=== PATIENT | female | born 1970 | race Caucasian/White ===

== ENCOUNTER 2017-01-03 04:48 | Emergency (ER) | payer OTHER ==
[~2017-01-03] VITALS: Ht 175.3 cm; Wt 66.5 kg
[~2017-01-03 04:48] MED LIST: CLON1 PO; NAPR40TA PO; SYNT75TA PO; TRAM50 PO
[2017-01-03 05:03] VITALS: BP 94/55; PULSE 77; RESP 18; TEMP 98.1; O2SAT 97
[2017-01-03] MEDS ORDERED: KLON2TAB PO (05:08)
[2017-01-03 05:13] VITALS: RESP 18; O2SAT 97
[2017-01-03 05:41] LABS: AUTOMATED NEUTROPHIL # 3.2 TH/MM3 (1.8-7.7); BASOPHIL # 0.1 TH/MM3 (0-0.2); BASOPHIL % 0.8 % (0.0-2.0); EOSINOPHIL # 0.3 TH/MM3 (0-0.4); EOSINOPHIL % 4.2 % (0.0-4.0); HEMATOCRIT 37.1 % (35.0-46.0); HEMO FLAGS DIFF FINAL; LYMPH % 41.9 % (9.0-44.0); LYMPHOCYTE # 2.9 TH/MM3 (1.0-4.8); MEAN CELL VOLUME 90.3 FL (80.0-100.0); MEAN CORPUSCULAR HEMOGLOBIN 30.2 PG (27.0-34.0); MEAN CORPUSCULAR HGB CONC 33.5 % (32.0-36.0); MONO % 6.5 % (0.0-8.0); NEUT % 46.6 % (16.0-70.0); PLATELET COUNT 253 TH/MM3 (150-450); RED BLOOD COUNT 4.11 MIL/MM3 (4.00-5.30); RED CELL DISTRIBUTION WIDTH 12.9 % (11.6-17.2)
[2017-01-03 05:42] LABS: BLOOD, URINE SMALL (NEG); GLUCOSE,URINE NEG (NEG); KETONE, URINE NEG (NEG); NITRITE,URINE NEG (NEG)
[2017-01-03 05:49] LABS: CHLORIDE 108 MEQ/L (98-107); POTASSIUM 3.5 MEQ/L (3.5-5.1); SODIUM (NA) 144 MEQ/L (136-145)
[2017-01-03 05:53] LABS: ANION GAP 7 MEQ/L (5-15); BICARBONATE 28.7 MEQ/L (21.0-32.0); BLOOD UREA NITROGEN 3 MG/DL (7-18)
[2017-01-03 05:56] LABS: ALT (GPT) 19 U/L (10-53); AST (GOT) 16 U/L (15-37); GLOMERULAR FILTRATION RATE 80 ML/MIN (>89)
[2017-01-03 05:57] LABS: TOTAL BILIRUBIN ADULT 0.2 MG/DL (0.2-1.0)
[2017-01-03 05:59] LABS: ALKALINE PHOSPHATASE 49 U/L (45-117)
[2017-01-03 06:08] LABS: URINE COLOR YELLOW (YELLW/STRAW)
[2017-01-03 06:10] LABS: RBC, URINE 0-3 /hpf (0-3)
[2017-01-03 06:11] VITALS: BP 95/48; PULSE 70; RESP 18; O2SAT 98
[2017-01-03 06:11] LABS: BACTERIA, URINE MOD /hpf; COMMENT (UR) CULTURE INDICATED; CULTURE IF INDICATED CULTURE INDICATED; MUCUS URINE OCC /lpf (OCC); SQUAMOUS EPITHELIAL CELL URINE 0-5 /hpf (0-5)
--- NOTE | 2017-01-03 06:37 | PD ---
HPI Chief Complaint: Abdominal Pain Time Seen by Provider: 06:21 Travel History International Travel<30 days: No Contact w/Intl Traveler<30days: No Traveled to known affect area: No History of Present Illness HPI The patient is a 46-year-old female, G3, P0, A3 with 2 spontaneous abortions and one elective who states her last menstrual period was around 04 December and she complains of vaginal bleeding for 3 days along with pelvic pain. The patient denies any fever. She states she got a Percocet from her neighbor had 7:30 PM yesterday but it didn't help. The patient is a frequent visitor to this emergency department, often for anxiety and she has been positive on several occasions for benzodiazepines and opiates. The patient states she has prescribed Klonopin for her anxiety. PFSH Past Medical History Hx Anticoagulant Therapy: No Asthma: No Autoimmune Disease: No Bipolar Disorder: Yes Anxiety: Yes (PANIC ATTACKS) Depression: Yes (POST TRAUMATIC STRESS DISORDER) Cardiovascular Problems: No Chemotherapy: No Cerebrovascular Accident: No Diabetes: No Diminished Hearing: No Respiratory: No Immunizations Current: Yes Thyroid Disease: Yes (HYPOTHYROID) Tetanus Vaccination: < 5 Years Influenza Vaccination: No ?: Unknown LMP: Nov : 3 Miscarriage: 2 : 1 Past Surgical History Appendectomy: Yes (1998) Genitourinary Surgery: No Hysterectomy: No Other Surgery: Yes (RHINOPLASTY- 1998, BLEPHAROPLASTY 1998) Social History Alcohol Use: No Tobacco Use: Yes (2 PPD) Substance Use: No (hx of OPIATES- BENZOS use) Allergies-Medications (Allergen,Severity, Reaction): Coded Allergies: Ceftin (Verified Allergy, Severe, SHOCK, 01/03/17) Risperdal (Verified Allergy, Severe, Anaphylaxis, 01/03/17) Sulfa (Verified Allergy, Severe, SOB, HIVES, FREAK OUT, 01/03/17) Tetracycline (Verified Allergy, Severe, SOB, HIVES FREAK OUT, 01/03/17) Reported Meds & Prescriptions Reported Meds & Active Scripts Active Reported Klonopin (Clonazepam) 2 Mg Tab 2 Mg PO BID Review of Systems Except as stated in HPI: all other systems reviewed are Neg Physical Exam Narrative GENERAL: The patient is alert, oriented 3 and slight apparent distress with her midline pelvic pain. Her vital signs are normal except for blood pressure 94/55. The patient is slender. The patient appears anxious. SKIN: Warm and dry. No needle tracks nor wrist slash davis are present. HEAD: Atraumatic. Normocephalic. EYES: Pupils equal and round. No scleral icterus. No injection or drainage. ENT: No nasal bleeding or discharge. Mucous membranes pink and moist. NECK: Trachea midline. No JVD. CARDIOVASCULAR: Regular rate and rhythm. No murmur appreciated. RESPIRATORY: No accessory muscle use. Clear to auscultation. Breath sounds equal bilaterally. GASTROINTESTINAL: Abdomen soft, with tenderness to direct palpation in the midline epigastrium, nondistended. Hepatic and splenic margins not palpable. No guarding or rebound is present. MUSCULOSKELETAL: No obvious deformities. No clubbing. No cyanosis. No edema. NEUROLOGICAL: Awake and alert. No obvious cranial nerve deficits. Motor grossly within normal limits. Normal speech. PSYCHIATRIC: Appropriate mood and affect except for anxiety; insight and judgment normal. GENITOURINARY: Normal external genitalia without lesions or erythema. Vaginal vault with a small amount of blood and no other drainage. Cervical os was closed without drainage. There is cervical motion tenderness. Uterus tender and nonenlarged. Bilateral adnexa tender without masses. Data Data Last Documented VS Vital Signs Date Time Temp Pulse Resp B/P Pulse Ox O2 Delivery O2 Flow Rate FiO2 01/03/17 06:11 70 18 95/48 98 Room Air 01/03/17 05:03 98.1 Orders Complete Blood Count With Diff (01/03/17 05:11) Comprehensive Metabolic Panel (01/03/17 05:11) Urinalysis - C+S If Indicated (01/03/17 05:11) Iv Access Insert/Monitor (01/03/17 05:11) Oxygen Administration (01/03/17 05:11) Oximetry (01/03/17 05:11) Lipase (01/03/17 05:11) Ed Urine Pregnancytest Poc (01/03/17 05:21) Urine Culture (01/03/17 05:30) Beta Hcg (Quant/Titer) (01/03/17 06:48) Basic Metabolic Panel (Bmp) (01/03/17 06:48) Gc And Chlamydia Pcr (01/03/17 06:48) Wet Prep Profile (01/03/17 06:48) Labs Laboratory Tests Test 01/03/17 05:30 White Blood Count 7.0 TH/MM3 Red Blood Count 4.11 MIL/MM3 Hemoglobin 12.4 GM/DL Hematocrit 37.1 % Mean Corpuscular Volume 90.3 FL Mean Corpuscular Hemoglobin 30.2 PG Mean Corpuscular Hemoglobin 33.5 % Concent Red Cell Distribution Width 12.9 % Platelet Count 253 TH/MM3 Mean Platelet Volume 6.9 FL Neutrophils (%) (Auto) 46.6 % Lymphocytes (%) (Auto) 41.9 % Monocytes (%) (Auto) 6.5 % Eosinophils (%) (Auto) 4.2 % Basophils (%) (Auto) 0.8 % Neutrophils # (Auto) 3.2 TH/MM3 Lymphocytes # (Auto) 2.9 TH/MM3 Monocytes # (Auto) 0.5 TH/MM3 Eosinophils # (Auto) 0.3 TH/MM3 Basophils # (Auto) 0.1 TH/MM3 CBC Comment DIFF FINAL Differential Comment Urine Collection Type Urine Color YELLOW Urine Turbidity SLIGHT Urine pH 6.0 Urine Specific [place] 1.009 Urine Protein NEG mg/dL Urine Glucose (UA) NEG mg/dL Urine Ketones NEG mg/dL Urine Occult Blood SMALL Urine Nitrite NEG Urine Bilirubin NEG Urine Leukocyte Esterase NEG Urine RBC 0-3 /hpf Urine WBC 3-5 /hpf Urine Squamous Epithelial 0-5 /hpf Cells Urine Bacteria MOD /hpf Urine Mucus OCC /lpf Microscopic Urinalysis Comment CULTURE INDICATED Sodium Level 144 MEQ/L Potassium Level 3.5 MEQ/L Chloride Level 108 MEQ/L Carbon Dioxide Level 28.7 MEQ/L Anion Gap 7 MEQ/L Blood Urea Nitrogen 3 MG/DL Creatinine 0.77 MG/DL Estimat Glomerular Filtration 80 ML/MIN Rate Random Glucose 87 MG/DL Calcium Level 8.2 MG/DL Total Bilirubin 0.2 MG/DL Aspartate Amino Transf 16 U/L (AST/SGOT) Alanine Aminotransferase 19 U/L (ALT/SGPT) Alkaline Phosphatase 49 U/L Total Protein 6.0 GM/DL Albumin 3.4 GM/DL Lipase 55 U/L [facility] Medical Decision Making Medical Screen Exam Complete: Yes Emergency Medical Condition: Yes Medical Record Reviewed: Yes Interpretation(s) The urine shows slight turbidity, small occult blood, moderate bacteria and culture is indicated. The complete metabolic profile shows GFR of 80, calcium 8.2, total protein 6.0 but is otherwise normal. The lipase is normal. The CBC shows a white count of 7000 and is basically normal. Differential Diagnosis PID, menstrual period, ruptured ovarian cyst, malingering for narcotic pain medications Narrative Course The patient requested a blood test. This will be ordered. The patient is transferred to Dr. Kellogg, likely she will go home. This could be a menstrual period or PID, the patient is afraid that she might be . Romaine Ceballos MD Jan 03, 2017 06:37
[2017-01-03 07:05] VITALS: BP 97/58; RESP 16; O2SAT 97
[2017-01-03 07:45] LABS: BETA HCG QUANT LESS THAN 1 MIU/ML (0-5)
--- NOTE | 2017-01-03 07:54 | PD ---
Data Data Last Documented VS Vital Signs Date Time Temp Pulse Resp B/P Pulse Ox O2 Delivery O2 Flow Rate FiO2 01/03/17 07:05 16 97/58 97 Room Air 01/03/17 06:11 70 01/03/17 05:03 98.1 Orders Complete Blood Count With Diff (01/03/17 05:11) Comprehensive Metabolic Panel (01/03/17 05:11) Urinalysis - C+S If Indicated (01/03/17 05:11) Iv Access Insert/Monitor (01/03/17 05:11) Oxygen Administration (01/03/17 05:11) Oximetry (01/03/17 05:11) Lipase (01/03/17 05:11) Ed Urine Pregnancytest Poc (01/03/17 05:21) Urine Culture (01/03/17 05:30) Beta Hcg (Quant/Titer) (01/03/17 06:48) Gc And Chlamydia Pcr (01/03/17 06:48) Wet Prep Profile (01/03/17 06:48) Labs Laboratory Tests Test 01/03/17 01/03/17 05:30 06:30 White Blood Count 7.0 TH/MM3 Red Blood Count 4.11 MIL/MM3 Hemoglobin 12.4 GM/DL Hematocrit 37.1 % Mean Corpuscular Volume 90.3 FL Mean Corpuscular Hemoglobin 30.2 PG Mean Corpuscular Hemoglobin 33.5 % Concent Red Cell Distribution Width 12.9 % Platelet Count 253 TH/MM3 Mean Platelet Volume 6.9 FL Neutrophils (%) (Auto) 46.6 % Lymphocytes (%) (Auto) 41.9 % Monocytes (%) (Auto) 6.5 % Eosinophils (%) (Auto) 4.2 % Basophils (%) (Auto) 0.8 % Neutrophils # (Auto) 3.2 TH/MM3 Lymphocytes # (Auto) 2.9 TH/MM3 Monocytes # (Auto) 0.5 TH/MM3 Eosinophils # (Auto) 0.3 TH/MM3 Basophils # (Auto) 0.1 TH/MM3 CBC Comment DIFF FINAL Differential Comment Urine Collection Type Urine Color YELLOW Urine Turbidity SLIGHT Urine pH 6.0 Urine Specific [place] 1.009 Urine Protein NEG mg/dL Urine Glucose (UA) NEG mg/dL Urine Ketones NEG mg/dL Urine Occult Blood SMALL Urine Nitrite NEG Urine Bilirubin NEG Urine Leukocyte Esterase NEG Urine RBC 0-3 /hpf Urine WBC 3-5 /hpf Urine Squamous Epithelial 0-5 /hpf Cells Urine Bacteria MOD /hpf Urine Mucus OCC /lpf Microscopic Urinalysis Comment CULTURE INDICATED Sodium Level 144 MEQ/L Potassium Level 3.5 MEQ/L Chloride Level 108 MEQ/L Carbon Dioxide Level 28.7 MEQ/L Anion Gap 7 MEQ/L Blood Urea Nitrogen 3 MG/DL Creatinine 0.77 MG/DL Estimat Glomerular Filtration 80 ML/MIN Rate Random Glucose 87 MG/DL Calcium Level 8.2 MG/DL Total Bilirubin 0.2 MG/DL Aspartate Amino Transf 16 U/L (AST/SGOT) Alanine Aminotransferase 19 U/L (ALT/SGPT) Alkaline Phosphatase 49 U/L Total Protein 6.0 GM/DL Albumin 3.4 GM/DL Lipase 55 U/L Human Chorionic Gonadotropin, LESS THAN 1 Quant MIU/ML Clue Cells (Wet Prep) NONE SEEN Vaginal Trichomonas (Wet Prep) NONE SEEN Vaginal Yeast (Wet Prep) NONE SEEN MDM Supervised Visit with SATISH: No Narrative Course patient left ama while I was with another patient before her beta quant resulted and before I could talk with her and reassess her Diagnosis Primary Impression: Abdominal pain Qualified Code: R10.9 - Abdominal pain, unspecified location Patient Instructions: General Instructions Departure Forms: Tests/Procedures Disposition: 07 AGAINST MEDICAL ADVICE Condition: Stable Amy Hastings MD Jan 03, 2017 07:54
[2017-01-03 13:08] LABS: CHLAMYDIA PCR NOT DETECTED (NOT DETECT); NEISSERIA PCR NOT DETECTED (NOT DETECT)
== END 2017-01-03 07:58 | disposition left against medical advice (07) ==
LOC: PHED 04:48
DX: R10.2 Pelvic and perineal pain (principal); N39.0 Urinary tract infection, site not specified; B96.20 Unspecified Escherichia coli [E. coli] as the cause of diseases classified elsewhere
CPT/HCPCS: 80053; 81001; 83690; 84702; 84703; 85025; 87077; 87086; 87186; 87210; 87491; 87591; 99284

== ENCOUNTER 2017-08-28 15:37 | Emergency (ER) | payer SELFPAY ==
[~2017-08-28] VITALS: Ht 177.2 cm; Wt 70.0 kg
[~2017-08-28 15:37] MED LIST changes: -CLON1 PO; +KLON2TAB PO; -NAPR40TA PO; -SYNT75TA PO; -TRAM50 PO
[2017-08-28 15:44] VITALS: BP 135/60; PULSE 93; RESP 16; TEMP 97.6; O2SAT 99
[2017-08-28] MEDS ORDERED: TOPA100T11 PO (16:12)
[2017-08-28] MEDS ORDERED: CARBXR200 PO (16:12)
[2017-08-28] MEDS ORDERED: SERO25TA PO (16:12)
[2017-08-28] MEDS ORDERED: NEUR100C PO (16:12)
[2017-08-28] MEDS ORDERED: ZOLO100T PO (16:12)
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
[2017-08-28] MEDS ORDERED: CLIN1CAP6 PO (16:46)
== END 2017-08-28 17:00 | disposition home or self-care (01) ==
LOC: PHEFT 15:37
DX: L03.115 Cellulitis of right lower limb (principal); V18.0XXA Pedal cycle driver injured in noncollision transport accident in nontraffic accident, initial encounter; F17.200 Nicotine dependence, unspecified, uncomplicated; F31.9 Bipolar disorder, unspecified
CPT/HCPCS: 99283

== ENCOUNTER 2017-11-06 15:00 | Inpatient (IN) | payer OTHER ==
[~2017-11-06] VITALS: Ht 177.8 cm; Wt 64.6 kg
[~2017-11-06 15:00] MED LIST changes: +CARBXR200 PO; +CLIN300C5 PO; +NEUR100C PO; +SERO25TA PO; +TOPI100 PO; +ZOLO100T PO
[2017-11-06 15:05] VITALS: BP 123/66; PULSE 104; RESP 16; TEMP 97.7; O2SAT 98
--- NOTE | 2017-11-06 15:18 | PD ---
HPI Chief Complaint: GI Complaint Time Seen by Provider: 15:18 Travel History International Travel<30 days: No Contact w/Intl Traveler<30days: No Traveled to known affect area: No History of Present Illness HPI 47-year-old female came to the emergency room with low back pain and right sided pain thing yesterday. Patient appears quite disheveled. I will be surprised if she is homeless. She also says that she noticed that her eyes were turning yellow and her urine was very dark in color. Patient was slightly tachycardic in triage. Upon looking back patient has had multiple visits in [place] most of them related to some sort of pain. She has been positive for benzo and opiates in her drug screen. Patient does not have any prescribed opiates or benzo's. In fact she's not taking any of her prescription medication she said. She denied doing any drugs or overusing opiates. [facility] Past Medical History Narrative Medical List of her past medical, surgical, social and family history is reviewed from the nursing note. Hx Anticoagulant Therapy: No Asthma: No Autoimmune Disease: No Bipolar Disorder: Yes Anxiety: Yes (PANIC ATTACKS) Depression: Yes (POST TRAUMATIC STRESS DISORDER) Cardiovascular Problems: No Chemotherapy: No Cerebrovascular Accident: No Diabetes: No Diminished Hearing: No Respiratory: No Immunizations Current: Yes Thyroid Disease: Yes (HYPOTHYROID) ?: Not : 3 Miscarriage: 2 : 1 Past Surgical History Abdominal Surgery: Yes Appendectomy: Yes (1998) Genitourinary Surgery: No Hysterectomy: No Other Surgery: Yes (RHINOPLASTY- 1998, BLEPHAROPLASTY 1998) Social History Alcohol Use: No Tobacco Use: Yes (2 PPD) Substance Use: No (hx of OPIATES- BENZOS use) Allergies-Medications (Allergen,Severity, Reaction): Coded Allergies: Sulfa (Sulfonamide Antibiotics) (Unverified Allergy, Severe, SOB, HIVES, FREAK OUT, 11/06/17) cefuroxime (Unverified Allergy, Severe, SHOCK, 11/06/17) doxycycline (Unverified Allergy, Severe, SOB, HIVES FREAK OUT, 11/06/17) minocycline (Unverified Allergy, Severe, SOB, HIVES FREAK OUT, 11/06/17) risperidone (Unverified Allergy, Severe, Anaphylaxis, 11/06/17) tigecycline (Unverified Allergy, Severe, SOB, HIVES FREAK OUT, 11/06/17) Comments List of her allergies reviewed from the nursing note. Reported Meds & Prescriptions Reported Meds & Active Scripts Active No Active Prescriptions or Reported Medications Narrative Medication List of her home medications reviewed from the nursing note. Review of Systems Except as stated in HPI: all other systems reviewed are Neg Physical Exam Narrative GENERAL: Awake, alert, moderate distress, disheveled, poor skin hygiene SKIN: Focused skin assessment warm/dry. Poor skin hygiene HEAD: Atraumatic. Normocephalic. EYES: Pupils equal and round. Scleral icterus. No injection or drainage. ENT: No nasal bleeding or discharge. Mucous membranes pink and moist. NECK: Trachea midline. No JVD. CARDIOVASCULAR: Regular rate and rhythm. No murmur appreciated. RESPIRATORY: No accessory muscle use. Clear to auscultation. Breath sounds equal bilaterally. GASTROINTESTINAL: Abdomen soft, non-tender, nondistended. Hepatic and splenic margins not palpable. Right CVA tenderness MUSCULOSKELETAL: No obvious deformities. No clubbing. No cyanosis. No edema. NEUROLOGICAL: Awake and alert. No obvious cranial nerve deficits. Motor grossly within normal limits. Normal speech. PSYCHIATRIC: Appropriate mood and affect; insight and judgment normal. Data Data Last Documented VS Orders Orders Urinalysis - C+S If Indicated (11/06/17 15:06) Ed Urine Pregnancytest Poc (11/06/17 15:06) Complete Blood Count With Diff (11/06/17 15:22) Comprehensive Metabolic Panel (11/06/17 15:22) Ct Abd/Pel W/O Iv Contrast (11/06/17 15:22) Iv Access Insert/Monitor (11/06/17 15:22) Ecg Monitoring (11/06/17 15:22) Oximetry (11/06/17 15:22) Sodium Chlor 0.9% 1000 Ml Inj (Ns 1000 M (11/06/17 15:22) Sodium Chloride 0.9% Flush (Ns Flush) (11/06/17 15:30) Ketorolac Inj (Toradol Inj) (11/06/17 15:30) Direct Bilirubin (11/06/17 15:22) Hepatitis Profile (11/06/17 15:22) Drug Screen, Random Urine (11/06/17 15:22) Tylenol (Acetaminophen) (11/06/17 15:22) Urine Culture (11/06/17 15:15) Prothrombin Time / Inr (Pt) (11/06/17 16:03) Act Partial Throm Time (Ptt) (11/06/17 16:03) Levofloxacin 500 Mg Premix Inj (Levaquin (11/06/17 16:15) Blood Culture (11/06/17 16:04) Lactic Acid (11/06/17 16:04) Us Abdomen Gallbladder (11/06/17 ) Ondansetron Inj (Zofran Inj) (11/06/17 16:30) Morphine Inj (Morphine Inj) (11/06/17 16:45) Sodium Chlor 0.9% 1000 Ml Inj (Ns 1000 M (11/06/17 17:00) Admit Order (Ed Use Only) (11/06/17 17:50) Labs Laboratory Tests Test 11/06/17 15:15 11/06/17 15:35 11/06/17 16:10 Urine Color [place] Urine Turbidity SLIGHT Urine pH 6.5 Urine Specific [place] 1.018 Urine Protein TRACE mg/dL Urine Glucose (UA) NEG mg/dL Urine Ketones NEG mg/dL Urine Occult Blood NEG Urine Nitrite POS Urine Bilirubin LARGE Urine Leukocyte Esterase TRACE Urine WBC 3-5 /hpf Urine Squamous Epithelial Cells > 8 /hpf Urine Bacteria MANY /hpf Microscopic Urinalysis Comment CULTURE INDICATED Urine Opiates Screen NEG Urine Barbiturates Screen NEG Urine Amphetamines Screen NEG Urine Benzodiazepines Screen POS Urine Cocaine Screen NEG Urine Cannabinoids Screen NEG White Blood Count 5.2 TH/MM3 Red Blood Count 5.25 MIL/MM3 Hemoglobin 15.1 GM/DL Hematocrit 44.6 % Mean Corpuscular Volume 84.9 FL Mean Corpuscular Hemoglobin 28.7 PG Mean Corpuscular Hemoglobin Concent 33.8 % Red Cell Distribution Width 15.4 % Platelet Count 226 TH/MM3 Mean Platelet Volume 8.2 FL Neutrophils (%) (Auto) 66.3 % Lymphocytes (%) (Auto) 21.2 % Monocytes (%) (Auto) 8.6 % Eosinophils (%) (Auto) 2.9 % Basophils (%) (Auto) 1.0 % Neutrophils # (Auto) 3.5 TH/MM3 Lymphocytes # (Auto) 1.1 TH/MM3 Monocytes # (Auto) 0.4 TH/MM3 Eosinophils # (Auto) 0.1 TH/MM3 Basophils # (Auto) 0.1 TH/MM3 CBC Comment DIFF FINAL Differential Comment Blood Urea Nitrogen 5 MG/DL Creatinine 0.71 MG/DL Random Glucose 116 MG/DL Total Protein 6.6 GM/DL Albumin 2.9 GM/DL Calcium Level 8.5 MG/DL Alkaline Phosphatase 342 U/L Aspartate Amino Transf (AST/SGOT) 1329 U/L Alanine Aminotransferase (ALT/SGPT) 1237 U/L Total Bilirubin 11.2 MG/DL Direct Bilirubin 8.5 MG/DL Sodium Level 131 MEQ/L Potassium Level 3.4 MEQ/L Chloride Level 100 MEQ/L Carbon Dioxide Level 23.6 MEQ/L Anion Gap 7 MEQ/L Estimat Glomerular Filtration Rate 88 ML/MIN Lipase 154 U/L Acetaminophen Level LESS THAN 2.0 MCG/ML Hepatitis A IgM Antibody NEGATIVE Hepatitis B Surface Antigen POSITIVE Hepatitis B Core IgM Antibody REACTIVE Hepatitis C Antibody NEGATIVE Prothrombin Time 13.6 SEC Prothromb Time International Ratio 1.3 RATIO Activated Partial Thromboplast Time 36.4 SEC Lactic Acid Level 2.2 mmol/L MDM Medical Decision Making Medical Screen Exam Complete: Yes Emergency Medical Condition: Yes Medical Record Reviewed: Yes Differential Diagnosis Tylenol toxicity, hepatitis, Narrative Course 4:03 PM UA suggestive of UTI and elevated bilirubin. Awaiting for blood test results and CAT scan. Patient is getting IV fluid bolus and was medicated for pain. I will order IV antibiotic Rocephin. Patient will be signed out to the oncoming ER physician. Procedures EKG Prior to Arrival: No Scripts No Active Prescriptions or Reported Meds Ashanti Erickson MD Nov 06, 2017 15:18
[2017-11-06] MEDS ORDERED: SODIUM CHLOR 0.9% 1000 ML INJ 1,000 ML IV SCH (15:22)
[2017-11-06 15:28] LABS: BLOOD, URINE NEG (NEG); GLUCOSE,URINE NEG (NEG); KETONE, URINE NEG (NEG); NITRITE,URINE POS (NEG); PH, URINE 6.5 (5.0-8.5)
[2017-11-06] MEDS ORDERED: SODIUM CHLORIDE 0.9% FLUSH 10 ML FLUSH IV FLUSH PRN ×2 (15:30→18:00)
[2017-11-06] MEDS ORDERED: KETOROLAC TROMETHAMINE 30 MG/ML (IVP) VIAL IVP ONE (15:30)
[2017-11-06 15:32] LABS: URINE COLOR AMBER (YELLW/STRAW)
[2017-11-06 15:33] LABS: BACTERIA, URINE MANY /hpf; COMMENT (UR) CULTURE INDICATED; CULTURE IF INDICATED CULTURE INDICATED; SQUAMOUS EPITHELIAL CELL URINE > 8 /hpf (0-5)
[2017-11-06 15:45] VITALS: RESP 16; O2SAT 98
[2017-11-06 15:57] LABS: AUTOMATED NEUTROPHIL # 3.5 TH/MM3 (1.8-7.7); BASOPHIL # 0.1 TH/MM3 (0-0.2); EOSINOPHIL # 0.1 TH/MM3 (0-0.4); EOSINOPHIL % 2.9 % (0.0-4.0); HEMATOCRIT 44.6 % (35.0-46.0); HEMO FLAGS DIFF FINAL; LYMPH % 21.2 % (9.0-44.0); LYMPHOCYTE # 1.1 TH/MM3 (1.0-4.8); MEAN CELL VOLUME 84.9 FL (80.0-100.0); MEAN CORPUSCULAR HEMOGLOBIN 28.7 PG (27.0-34.0); MEAN CORPUSCULAR HGB CONC 33.8 % (32.0-36.0); MONO % 8.6 % (0.0-8.0); NEUT % 66.3 % (16.0-70.0); PLATELET COUNT 226 TH/MM3 (150-450); RED BLOOD COUNT 5.25 MIL/MM3 (4.00-5.30); RED CELL DISTRIBUTION WIDTH 15.4 % (11.6-17.2); WHITE BLOOD COUNT 5.2 TH/MM3 (4.0-11.0)
--- NOTE | 2017-11-06 16:05 | RADRPT ---
EXAM DATE/TIME: 11/06/2017 15:46 [facility] COMPARISON: No previous studies available for comparison. INDICATIONS : Right abdominal pain, yellow sclera, and brown urine. ORAL CONTRAST: No oral contrast ingested. RADIATION DOSE: 4.73 CTDIvol (mGy) MEDICAL HISTORY : None SURGICAL HISTORY : Appendectomy. ENCOUNTER: Initial ACUITY: 1 week PAIN SCALE: 5/10 LOCATION: Right abdomen TECHNIQUE: Volumetric scanning of the abdomen and pelvis was performed. Using automated exposure control and ad justment of the mA and/or kV according to patient size, radiation dose was kept as low as reasonably achievable to obtain optimal diagnostic quality images. DICOM format image data is available electro nically for review and comparison. FINDINGS: LOWER LUNGS: The visualized lower lungs are clear. LIVER: Homogeneous density without lesion. There is no dilation of the biliary tree. No calcified gallston es. Common bile duct measures between 5 and 6 mm. SPLEEN: Normal size without lesion. PANCREAS: Within normal limits. KIDNEYS: Normal in size and shape. There is no mass or hydronephrosis. 2 mm nonobstructing stone involving t he right kidney. ADRENAL GLANDS: Within normal limits. VASCULAR: There is no aortic aneurysm. BOWEL/MESENTERY: The stomach, small bowel, and colon demonstrate no acute abnormality. There is no free intraperitone al air or fluid. ABDOMINAL WALL: Within normal limits. RETROPERITONEUM: There is no lymphadenopathy. BLADDER: No wall thickening or mass. REPRODUCTIVE: Within normal limits. INGUINAL: There is no lymphadenopathy or hernia. MUSCULOSKELETAL: Within normal limits for patient age. CONCLUSION: 1. No acute abnormality. In particular, no appreciable biliary dilatation. Evaluation of the bile catrina ts is somewhat limited due to the lack of IV contrast. 2. 2 mm nonobstructing right renal stone. Ike Abdi Jr., MD on November 06, 2017 at 15:58 Board Certified Radiologist. This report was verified electronically.
[2017-11-06 16:11] LABS: CHLORIDE 100 MEQ/L (98-107); POTASSIUM 3.4 MEQ/L (3.5-5.1); SODIUM (NA) 131 MEQ/L (136-145)
[2017-11-06 16:15] LABS: ANION GAP 7 MEQ/L (5-15); BICARBONATE 23.6 MEQ/L (21.0-32.0); BLOOD UREA NITROGEN 5 MG/DL (7-18)
[2017-11-06] MEDS ORDERED: LEVOFLOXACIN 500 MG PREMIX INJ 100 ML IV ONE (16:15)
[2017-11-06 16:18] LABS: GLOMERULAR FILTRATION RATE 88 ML/MIN (>89)
[2017-11-06 16:20] LABS: TOTAL BILIRUBIN ADULT 11.2 MG/DL (0.2-1.0)
[2017-11-06 16:21] LABS: ALKALINE PHOSPHATASE 342 U/L (45-117)
[2017-11-06 16:25] LABS: ALT (GPT) 1237 U/L (10-53)
[2017-11-06 16:26] LABS: AST (GOT) 1329 U/L (15-37)
[2017-11-06] MEDS ORDERED: ONDANSETRON HCL 4 MG/2 ML VIAL IV PUSH ONE (16:30)
[2017-11-06] MEDS ORDERED: MORPHINE SULFATE 4 MG/ML INJ IV PUSH ONE (16:45)
[2017-11-06 16:47] LABS: APTT (PATIENT) 36.4 SEC (24.3-30.1); INTERNATIONAL NORMALIZED RATIO 1.3 RATIO; PROTHROMBIN TIME - PATIENT 13.6 SEC (9.8-11.6)
[2017-11-06] MEDS ORDERED: SODIUM CHLOR 0.9% 1000 ML INJ 1,000 ML IV ONE (17:00)
--- NOTE | 2017-11-06 17:00 | PD ---
Data Data Last Documented VS Vital Signs Date Time Temp Pulse Resp B/P (MAP) Pulse Ox O2 Delivery O2 Flow Rate FiO2 11/06/17 15:45 16 98 Room Air 11/06/17 15:05 97.7 104 123/66 (85) Orders Orders Urinalysis - C+S If Indicated (11/06/17 15:06) Ed Urine Pregnancytest Poc (11/06/17 15:06) Complete Blood Count With Diff (11/06/17 15:22) Comprehensive Metabolic Panel (11/06/17 15:22) Ct Abd/Pel W/O Iv Contrast (11/06/17 15:22) Iv Access Insert/Monitor (11/06/17 15:22) Ecg Monitoring (11/06/17 15:22) Oximetry (11/06/17 15:22) Sodium Chlor 0.9% 1000 Ml Inj (Ns 1000 M (11/06/17 15:22) Sodium Chloride 0.9% Flush (Ns Flush) (11/06/17 15:30) Ketorolac Inj (Toradol Inj) (11/06/17 15:30) Direct Bilirubin (11/06/17 15:22) Hepatitis Profile (11/06/17 15:22) Drug Screen, Random Urine (11/06/17 15:22) Tylenol (Acetaminophen) (11/06/17 15:22) Urine Culture (11/06/17 15:15) Prothrombin Time / Inr (Pt) (11/06/17 16:03) Act Partial Throm Time (Ptt) (11/06/17 16:03) Levofloxacin 500 Mg Premix Inj (Levaquin (11/06/17 16:15) Blood Culture (11/06/17 16:04) Lactic Acid (11/06/17 16:04) Us Abdomen Gallbladder (11/06/17 ) Ondansetron Inj (Zofran Inj) (11/06/17 16:30) Morphine Inj (Morphine Inj) (11/06/17 16:45) Sodium Chlor 0.9% 1000 Ml Inj (Ns 1000 M (11/06/17 17:00) Admit Order (Ed Use Only) (11/06/17 17:50) Labs Laboratory Tests Test 11/06/17 15:15 11/06/17 15:35 11/06/17 16:10 Urine Color [place] Urine Turbidity SLIGHT Urine pH 6.5 Urine Specific [place] 1.018 Urine Protein TRACE mg/dL Urine Glucose (UA) NEG mg/dL Urine Ketones NEG mg/dL Urine Occult Blood NEG Urine Nitrite POS Urine Bilirubin LARGE Urine Leukocyte Esterase TRACE Urine WBC 3-5 /hpf Urine Squamous Epithelial Cells > 8 /hpf Urine Bacteria MANY /hpf Microscopic Urinalysis Comment CULTURE INDICATED Urine Opiates Screen NEG Urine Barbiturates Screen NEG Urine Amphetamines Screen NEG Urine Benzodiazepines Screen POS Urine Cocaine Screen NEG Urine Cannabinoids Screen NEG White Blood Count 5.2 TH/MM3 Red Blood Count 5.25 MIL/MM3 Hemoglobin 15.1 GM/DL Hematocrit 44.6 % Mean Corpuscular Volume 84.9 FL Mean Corpuscular Hemoglobin 28.7 PG Mean Corpuscular Hemoglobin Concent 33.8 % Red Cell Distribution Width 15.4 % Platelet Count 226 TH/MM3 Mean Platelet Volume 8.2 FL Neutrophils (%) (Auto) 66.3 % Lymphocytes (%) (Auto) 21.2 % Monocytes (%) (Auto) 8.6 % Eosinophils (%) (Auto) 2.9 % Basophils (%) (Auto) 1.0 % Neutrophils # (Auto) 3.5 TH/MM3 Lymphocytes # (Auto) 1.1 TH/MM3 Monocytes # (Auto) 0.4 TH/MM3 Eosinophils # (Auto) 0.1 TH/MM3 Basophils # (Auto) 0.1 TH/MM3 CBC Comment DIFF FINAL Differential Comment Blood Urea Nitrogen 5 MG/DL Creatinine 0.71 MG/DL Random Glucose 116 MG/DL Total Protein 6.6 GM/DL Albumin 2.9 GM/DL Calcium Level 8.5 MG/DL Alkaline Phosphatase 342 U/L Aspartate Amino Transf (AST/SGOT) 1329 U/L Alanine Aminotransferase (ALT/SGPT) 1237 U/L Total Bilirubin 11.2 MG/DL Direct Bilirubin 8.5 MG/DL Sodium Level 131 MEQ/L Potassium Level 3.4 MEQ/L Chloride Level 100 MEQ/L Carbon Dioxide Level 23.6 MEQ/L Anion Gap 7 MEQ/L Estimat Glomerular Filtration Rate 88 ML/MIN Acetaminophen Level LESS THAN 2.0 MCG/ML Prothrombin Time 13.6 SEC Prothromb Time International Ratio 1.3 RATIO Activated Partial Thromboplast Time 36.4 SEC Lactic Acid Level 2.2 mmol/L [facility] Supervised Visit with SATISH: No Narrative Course Patient was initially evaluated by the previous provider and sent out to me at the beginning of my shift pending labs, CT abdomen pelvis, and disposition. See her note for further details. Briefly this is a 47-year-old female who presents with jaundice and right-sided abdominal pain. On physical exam the patient has scleral icterus and diffuse jaundice. She denies alcohol or illicit substance abuse. She states that for the last 2 weeks she has been taking about 6 Tylenol daily for left flank pain. She took one Lortab obtained from her friend yesterday. Last dose of Tylenol was yesterday. She denies fevers or chills. Reports that she had a significant other who had hepatitis. CBC is unremarkable. CMP is remarkable for sodium 131, potassium 3.4, T bili 11.2, direct bili 8.5, AST 1329, ALT 1237 , alkaline phosphatase 342. Lactic acid is 2.2. PT is 13.6, INR is 1.3, APTT is 36.4. Urine drug screen is positive for benzodiazepines. UA shows [place] urine, positive nitrites, many bacteria, large bilirubin, trace leukocyte esterase. The patient was given a dose of Levaquin by the previous provider. Tylenol level is negative. CT abdomen pelvis: CONCLUSION: 1. No acute abnormality. In particular, no appreciable biliary dilatation. Evaluation of the bile ducts is somewhat limited due to the lack of IV contrast. 2. 2 mm nonobstructing right renal stone. Wet read of right upper quadrant ultrasound by the manufacturing maintenance technician shows a normal CBD. Patient was made aware of all findings and was given 2 L normal saline IV here in the emergency department. She was also given a dose of IV Levaquin. She is still complaining of some right-sided abdominal pain despite receiving Toradol. On exam there is mild tenderness without peritoneal signs, no abdominal distention, no rebound or guarding. She will be given a dose of IV morphine and will be admitted for further treatment and evaluation of acute hepatitis, hyperbilirubinemia, jaundice. Case discussed with hospitalist Dr. Carolina who will admit the patient to his service. Diagnosis Primary Impression: Acute hepatitis Additional Impressions: Hyperbilirubinemia Jaundice UTI (urinary tract infection) Qualified Codes: N39.0 - Urinary tract infection, site not specified Admitting Information Admitting Physician Requests: Admit Scripts No Active Prescriptions or Reported Meds Fredy Saucedo MD Nov 06, 2017 17:00
[2017-11-06 17:40] LABS: ACETAMINOPHEN LESS THAN 2.0 MCG/ML (10.0-30.0)
[2017-11-06 17:50] VITALS: BP 102/56; PULSE 72; RESP 16; O2SAT 97
--- NOTE | 2017-11-06 17:51 | RADRPT ---
EXAM DATE/TIME: 11/06/2017 17:14 [facility] COMPARISON: No previous studies available for comparison. INDICATIONS : Right upper quadrant pain and Jaundice. MEDICAL HISTORY : Hypothyroidism. . Bipolar disorder. PTSD. Anxiety. SURGICAL HISTORY : Appendectomy. Rhinoplasty. Blepharoplasty. ENCOUNTER: Initial ACUITY: 2 weeks PAIN SCORE: 0/10 LOCATION: Right upper quadrant MEASUREMENTS: LIVER: 17.6 cm length COMMON DUCT: 5 mm RIGHT KIDNEY: 12.5 x 6.0 x 5.6 cm FINDINGS: LIVER: Normal echotexture without focal lesion or ductal dilatation. Tiny amount of surrounding free fluid COMMON DUCT: No intraluminal mass or stone visualized. GALLBLADDER: Difficult to identify likely contracted. PANCREAS: The visualized portions are within normal limits. RIGHT KIDNEY: No evidence of hydronephrosis, stone, or mass. CONCLUSION: Minimal amount of free fluid around the liver. Gallbladder is contracted. No concerning solid mass.. Vickey Jones MD on November 06, 2017 at 17:48 Board Certified Radiologist. This report was verified electronically.
[2017-11-06] MEDS ORDERED: NALOXONE HCL 0.4 MG/ML AMP IV PUSH PRN (18:00)
[2017-11-06] MEDS ORDERED: BISACODYL 10 MG SUPP RECTAL PRN (18:00)
[2017-11-06] MEDS ORDERED: MAGNESIUM HYDROXIDE SUSP 30 ML CUP PO PRN (18:00)
[2017-11-06] MEDS ORDERED: LACTULOSE SYRUP 20 GM/30 ML CUP PO PRN (18:00)
[2017-11-06] MEDS ORDERED: SENNOSIDES 8.6 MG TAB PO PRN (18:00)
--- NOTE | 2017-11-06 18:07 | HHI.HP ---
HPI Service [facility] Primary Care Physician Zak Mcbride, DO Admission Diagnosis acute hepatitis, hyperbilirubinemia, jaundice, UTI Diagnoses: Chief Complaint: Jaundice, brown-colored urine, right lower abd pain Travel History International Travel<30 Days: No Contact w/Intl Traveler <30 Da: No Traveled to Known Affected Are: No History of Present Illness Ms. Spicer is a 47-year-old female with a history of hypothyroidism who presents to the emergency department on the 2016 due to right lower abdominal pain, brownish color urine, icteric sclera that started about 1 week prior to this admission. Patient also reports fever on and off and chills as well. She reports nausea vomiting for for 5 days. She mostly complains of right lower quadrant pain but also some right upper quadrant abdominal pain. She reports no recent travel outside the country. She is sexually active with her ex-boyfriend who has hepatitis C. No recent tattoos. Patient reports no chest pain, cough, diarrhea or constipation. Review of Systems Except as stated in HPI: all other systems reviewed are Neg Past Family Social History Past Medical History Hypothyroidism, anxiety Past Surgical History Appendectomy Reported Medications Patient does not take any medication on a regular basis. Allergies: Coded Allergies: Sulfa (Sulfonamide Antibiotics) (Unverified Allergy, Severe, SOB, HIVES, FREAK OUT, 11/06/17) cefuroxime (Unverified Allergy, Severe, SHOCK, 11/06/17) doxycycline (Unverified Allergy, Severe, SOB, HIVES FREAK OUT, 11/06/17) minocycline (Unverified Allergy, Severe, SOB, HIVES FREAK OUT, 11/06/17) risperidone (Unverified Allergy, Severe, Anaphylaxis, 11/06/17) tigecycline (Unverified Allergy, Severe, SOB, HIVES FREAK OUT, 11/06/17) Family History Mother - hypertension Grandfather - esophageal cancer Social History Patient smokes 1 and half pack of cigarettes a day. Denies using alcohol or any illicit drugs. Physical Exam Vital Signs Vital Signs Date Time Temp Pulse Resp B/P (MAP) Pulse Ox O2 Delivery O2 Flow Rate FiO2 11/06/17 17:50 72 16 102/56 (71) 97 Room Air 11/06/17 15:45 16 98 Room Air 11/06/17 15:05 97.7 104 16 123/66 (85) 98 Physical Exam GENERAL: This is a well-nourished, well-developed patient, in no apparent distress. SKIN: No rashes, ecchymoses or lesions. Warm and dry. Skin appears overall jaundiced. HEAD: Atraumatic. Normocephalic. No temporal or scalp tenderness. EYES: Pupils equal round and reactive. No injection or drainage. Icteric sclera ENT: Nose without bleeding, purulent drainage or septal hematoma. Airway patent. Icteric sublingual area NECK: Trachea midline. No lymphadenopathy. Supple, nontender, no meningeal signs. CARDIOVASCULAR: Regular rate and rhythm without murmurs, gallops, or rubs. No JVD. RESPIRATORY: Moderate air entry. No appreciable wheezing. GASTROINTESTINAL: Abdomen soft, nondistended. No guarding. Tender to palpation over right lower quadrant. MUSCULOSKELETAL: Extremities without clubbing, cyanosis, or edema. NEUROLOGICAL: Awake and alert. Cranial nerves II through XII intact. No focal neurological deficits. Normal speech. Laboratory Laboratory Tests Test 11/06/17 15:15 11/06/17 15:35 11/06/17 16:10 Urine Color [place] Urine Turbidity SLIGHT Urine pH 6.5 Urine Specific [place] 1.018 Urine Protein TRACE Urine Glucose (UA) NEG Urine Ketones NEG Urine Occult Blood NEG Urine Nitrite POS Urine Bilirubin LARGE Urine Leukocyte Esterase TRACE Urine WBC 3-5 Urine Squamous Epithelial Cells > 8 Urine Bacteria MANY Microscopic Urinalysis Comment CULTURE INDICATED Urine Opiates Screen NEG Urine Barbiturates Screen NEG Urine Amphetamines Screen NEG Urine Benzodiazepines Screen POS Urine Cocaine Screen NEG Urine Cannabinoids Screen NEG White Blood Count 5.2 Red Blood Count 5.25 Hemoglobin 15.1 Hematocrit 44.6 Mean Corpuscular Volume 84.9 Mean Corpuscular Hemoglobin 28.7 Mean Corpuscular Hemoglobin Concent 33.8 Red Cell Distribution Width 15.4 Platelet Count 226 Mean Platelet Volume 8.2 Neutrophils (%) (Auto) 66.3 Lymphocytes (%) (Auto) 21.2 Monocytes (%) (Auto) 8.6 Eosinophils (%) (Auto) 2.9 Basophils (%) (Auto) 1.0 Neutrophils # (Auto) 3.5 Lymphocytes # (Auto) 1.1 Monocytes # (Auto) 0.4 Eosinophils # (Auto) 0.1 Basophils # (Auto) 0.1 CBC Comment DIFF FINAL Differential Comment Blood Urea Nitrogen 5 Creatinine 0.71 Random Glucose 116 Total Protein 6.6 Albumin 2.9 Calcium Level 8.5 Alkaline Phosphatase 342 Aspartate Amino Transf (AST/SGOT) 1329 Alanine Aminotransferase (ALT/SGPT) 1237 Total Bilirubin 11.2 Direct Bilirubin 8.5 Sodium Level 131 Potassium Level 3.4 Chloride Level 100 Carbon Dioxide Level 23.6 Anion Gap 7 Estimat Glomerular Filtration Rate 88 Acetaminophen Level LESS THAN 2.0 Prothrombin Time 13.6 Prothromb Time International Ratio 1.3 Activated Partial Thromboplast Time 36.4 Lactic Acid Level 2.2 Date/Time Source Procedure Growth Status 11/06/17 16:15 Blood Peripheral Aerobic Blood Culture Pending Received 11/06/17 16:15 Blood Peripheral Anaerobic Blood Culture Pending Received 11/06/17 15:15 Urine Clean Catch Urine Culture Pending Received Result Diagram: 11/06/17 1535 11/06/17 1535 Imaging Last Impressions Abdomen/Pelvis CT 11/06/17 1522 Signed Impressions: Service Date/Time: Monday, November 06, 2017 15:46 - CONCLUSION: 1. No acute abnormality. In particular, no appreciable biliary dilatation. Evaluation of the bile ducts is somewhat limited due to the lack of IV contrast. 2. 2 mm nonobstructing right renal stone. MD Vikas Reynolds Jr. VTE Risk Assessment Caprini VTE Risk Assessment: Mod/High Risk (score >= 2) Caprini Risk Assessment Model Point Value = 1 Point Value = 2 Point Value = 3 Point Value = 5 Age 41-60 Minor surgery BMI > 25 kg/m2 Swollen legs Varicose veins or History of unexplained or recurrent spontaneous Oral contraceptives or hormone replacement Sepsis (< 1 month) Serious lung disease, including pneumonia (< 1 month) Abnormal pulmonary function Acute myocardial infarction Congestive heart failure (< 1 month) History of inflammatory bowel disease Medical patient at bed rest Age 61-74 Arthroscopic surgery Major open surgery (> 45 min) Laparoscopic surgery (> 45 min) Malignancy Confined to bed (> 72 hours) Immobilizing plaster cast Central venous access Age >= 75 History of VTE Family history of VTE Factor V Leiden Prothrombin [id number] Lupus anticoagulant Anticardiolipin antibodies Elevated serum homocysteine Heparin-induced thrombocytopenia Other congenital or acquired thrombophilia Stroke (< 1 month) Elective arthroplasty Hip, pelvis, or leg fracture Acute spinal cord injury (< 1 month) Prophylaxis Regimen Total Risk Factor Score Risk Level Prophylaxis Regimen 0-1 Low Early ambulation 2 Moderate Order ONE of the following: *Sequential Compression Device (SCD) *Heparin 5000 units SQ BID 3-4 Higher Order ONE of the following medications: *Heparin 5000 units SQ TID *Enoxaparin/Lovenox 40 mg SQ daily (WT < 150 kg, CrCl > 30 mL/min) *Enoxaparin/Lovenox 30 mg SQ daily (WT < 150 kg, CrCl > 10-29 mL/min) *Enoxaparin/Lovenox 30 mg SQ BID (WT < 150 kg, CrCl > 30 mL/min) AND/OR *Sequential Compression Device (SCD) 5 or more Highest Order ONE of the following medications: *Heparin 5000 units SQ TID (Preferred with Epidurals) *Enoxaparin/Lovenox 40 mg SQ daily (WT < 150 kg, CrCl > 30 mL/min) *Enoxaparin/Lovenox 30 mg SQ daily (WT < 150 kg, CrCl > 10-29 mL/min) *Enoxaparin/Lovenox 30 mg SQ BID (WT < 150 kg, CrCl > 30 mL/min) AND *Sequential Compression Device (SCD) Assessment and Plan Problem List: (1) Jaundice ICD Code: R17 - Unspecified jaundice Status: Acute (2) Hyperbilirubinemia ICD Code: E80.6 - Other disorders of bilirubin metabolism Status: Acute (3) Hypothyroidism ICD Code: E03.9 - Hypothyroidism, unspecified (4) Anxiety ICD Code: F41.9 - Anxiety disorder, unspecified Assessment and Plan Ms. Spicer is a pleasant 47-year-old female with a history of hypothyroidism, anxiety who presents to the emergency department due to one week duration of right lower quadrant abdominal pain, brownish colored urine, jaundiced skin and icteric sclera. Patient reports no outside the country travel. She is sexually active with her ex-boyfriend who has hepatitis C. No recent tattoos. - Probable acute hepatitis - possibly hepatitis C. - Jaundice - Hyperbilirubinemia - AST 1329, ALT 1237, alkaline phosphatase 342. Total bilirubin 11.2 direct bilirubin 8.5. Lipase 154. - We'll obtain hepatitis profile. Consult gastroenterology for further evaluation and recommendations. - Acetaminophen level less than 2.0. UDS positive for benzodiazepine. - Morphine for pain. - Mild hyponatremia - Mild hypokalemia - Sodium 131, potassium 3.4. - We'll start patient on D5 normal saline with potassium chloride. - Anxiety - continue Klonopin 0.5 mg twice a day when necessary - Hypothyroidism - patient is not on any medication currently. We'll check TSH level in the morning. - Tobacco abuse - patient is counseled regarding tobacco cessation. Full code. SCDs. Physician Certification 2 Midnight Certification Type: Admission for Inpatient Services Order for Inpatient Services The services are ordered in accordance with Medicare regulations or non- Medicare payer requirements, as applicable. In the case of services not specified as inpatient-only, they are appropriately provided as inpatient services in accordance with the 2-midnight benchmark. Estimated LOS (days): 2 days is the estimated time the patient will need to remain in the hospital, assuming treatment plan goals are met and no additional complications. Post-Hospital Plan: Home Arlette Carolina DO Nov 06, 2017 6:07 pm
[2017-11-06] MEDS: D5-NS + KCL 20 MEQ INJ 1,000 ML IV SCH (18:25)
[2017-11-06 19:05] VITALS: BP 119/70; PULSE 74; RESP 16; O2SAT 96
[2017-11-06 19:45] VITALS: BP 106/57; PULSE 67; RESP 18; TEMP 96.7; O2SAT 97
[2017-11-06] MEDS: SODIUM CHLORIDE 0.9% FLUSH 10 ML FLUSH IV FLUSH SCH (21:15)
[2017-11-06] MEDS: MORPHINE SULFATE 4 MG/ML INJ IV PUSH PRN (21:17)
[2017-11-07] VITALS: BP 124/58; PULSE 63; RESP 20; TEMP 96.5; O2SAT 97
[2017-11-07] MEDS: MORPHINE SULFATE 4 MG/ML INJ IV PUSH PRN ×8 (00:34→22:42)
[2017-11-07 05:59] LABS: AUTOMATED NEUTROPHIL # 3.9 TH/MM3 (1.8-7.7); BASOPHIL % 0.6 % (0.0-2.0); EOSINOPHIL # 0.3 TH/MM3 (0-0.4); EOSINOPHIL % 4.9 % (0.0-4.0); HEMATOCRIT 40.5 % (35.0-46.0); HEMO FLAGS DIFF FINAL; LYMPH % 23.8 % (9.0-44.0); LYMPHOCYTE # 1.5 TH/MM3 (1.0-4.8); MEAN CELL VOLUME 86.2 FL (80.0-100.0); MEAN CORPUSCULAR HEMOGLOBIN 29.4 PG (27.0-34.0); MEAN CORPUSCULAR HGB CONC 34.1 % (32.0-36.0); MONO % 8.1 % (0.0-8.0); NEUT % 62.6 % (16.0-70.0); PLATELET COUNT 202 TH/MM3 (150-450); RED BLOOD COUNT 4.69 MIL/MM3 (4.00-5.30); RED CELL DISTRIBUTION WIDTH 15.8 % (11.6-17.2); WHITE BLOOD COUNT 6.2 TH/MM3 (4.0-11.0)
[2017-11-07 06:18] LABS: CHLORIDE 104 MEQ/L (98-107); POTASSIUM 3.6 MEQ/L (3.5-5.1); SODIUM (NA) 135 MEQ/L (136-145)
[2017-11-07] MEDS: D5-NS + KCL 20 MEQ INJ 1,000 ML IV SCH ×2 (06:20→17:02)
[2017-11-07 06:24] LABS: ANION GAP 7 MEQ/L (5-15); BICARBONATE 24.2 MEQ/L (21.0-32.0)
[2017-11-07 06:25] LABS: BLOOD UREA NITROGEN 3 MG/DL (7-18)
[2017-11-07 06:28] LABS: ALT (GPT) 955 U/L (10-53); GLOMERULAR FILTRATION RATE 129 ML/MIN (>89)
[2017-11-07 06:30] LABS: ALKALINE PHOSPHATASE 273 U/L (45-117)
[2017-11-07 06:35] LABS: AST (GOT) 1006 U/L (15-37)
[2017-11-07] MEDS: SODIUM CHLORIDE 0.9% FLUSH 10 ML FLUSH IV FLUSH SCH ×2 (07:49→20:02)
[2017-11-07 08:00] VITALS: BP 124/59; PULSE 62; RESP 18; TEMP 98.2; O2SAT 96
[2017-11-07] MEDS ORDERED: PNEUMOCOCCAL POLYVALENT INJ 25 MCG/0.5 ML SYR IM ONE (09:00)
[2017-11-07] MEDS ORDERED: INFLUENZA VIRUS VACCINE (QUADRIVALENT) 0.5 ML SYR IM ONE (09:00)
[2017-11-07 16:00] VITALS: BP 170/74; PULSE 69; RESP 16; TEMP 98; O2SAT 95
--- NOTE | 2017-11-07 18:13 | HHI.PR ---
Subjective Remarks Follow-up for hepatitis B, jaundice, hyperbilirubinemia. Patient is doing slightly better. However she continues to have some nausea and vomiting. No fever or chills. Objective Vitals Vital Signs Date Time Temp Pulse Resp B/P (MAP) Pulse Ox O2 Delivery O2 Flow Rate FiO2 11/07/17 08:00 98.2 62 18 124/59 (80) 96 11/07/17 00:00 96.5 63 20 124/58 (80) 97 11/06/17 19:51 76 16 96 11/06/17 19:45 96.7 67 18 106/57 (73) 97 11/06/17 19:05 74 16 119/70 (86) 96 Room Air I/O 11/06/17 11/06/17 11/06/17 11/07/17 11/07/17 11/07/17 07:00 15:00 23:00 07:00 15:00 23:00 Intake Total 2197.8 ml 855 ml Balance 2197.8 ml 855 ml Intake Oral 480 ml IV Total 2197.8 ml 375 ml # Voids 4 # Bowel Movements 0 Result Diagram: 11/07/17 0525 11/07/17 0525 Imaging Last Impressions Abdomen/Pelvis CT 11/06/17 1522 Signed Impressions: Service Date/Time: Monday, November 06, 2017 15:46 - CONCLUSION: 1. No acute abnormality. In particular, no appreciable biliary dilatation. Evaluation of the bile ducts is somewhat limited due to the lack of IV contrast. 2. 2 mm nonobstructing right renal stone. Ike Abdi Jr., MD Gall Bladder Ultrasound 11/06/17 0000 Signed Impressions: Service Date/Time: Monday, November 06, 2017 17:14 - CONCLUSION: Minimal amount of free fluid around the liver. Gallbladder is contracted. No concerning solid mass.. Vickey Jones MD Objective Remarks GENERAL: Alert, oriented 3, NAD. SKIN: Warm and dry. Jaundiced skin HEAD: Normocephalic. EYES: scleral icterus. No injection or drainage. NECK: Supple, trachea midline. No JVD or lymphadenopathy. CARDIOVASCULAR: Regular rate and rhythm without murmurs, gallops, or rubs. RESPIRATORY: Breath sounds equal bilaterally. No accessory muscle use. GASTROINTESTINAL: Abdomen soft, tender to palpation over right lower quadrant, nondistended. MUSCULOSKELETAL: No cyanosis, or edema. BACK: Nontender without obvious deformity. No CVA tenderness. A/P Problem List: (1) Jaundice ICD Code: R17 - Unspecified jaundice Status: Acute (2) Hyperbilirubinemia ICD Code: E80.6 - Other disorders of bilirubin metabolism Status: Acute (3) Hypothyroidism ICD Code: E03.9 - Hypothyroidism, unspecified (4) Anxiety ICD Code: F41.9 - Anxiety disorder, unspecified Assessment and Plan Ms. Spicer is a pleasant 47-year-old female with a history of hypothyroidism, anxiety who presents to the emergency department due to one week duration of right lower quadrant abdominal pain, brownish colored urine, jaundiced skin and icteric sclera. Patient reports no outside the country travel. She is sexually active with her ex-boyfriend who has hepatitis C. No recent tattoos. - Probable acute hepatitis B - Jaundice - Hyperbilirubinemia - Initial AST 1329, ALT 1237, alkaline phosphatase 342. Total bilirubin 11.2 direct bilirubin 8.5. Lipase 154. Liver enzymes are trending down. - Hepatitis B DNA Quant pending. - GI consulted, patient was seen by GI today. - Acetaminophen level less than 2.0. UDS positive for benzodiazepine. - Morphine for pain. - If we have clear downward trend of liver enzymes and patient is clinically better, we will consider discharging patient home. - Mild hyponatremia - Mild hypokalemia - Sodium 131 --> 135 potassium 3.4 --> 3.6. - We'll Continue patient on D5 normal saline with potassium chloride. - Anxiety - continue Klonopin 0.5 mg twice a day when necessary - Hypothyroidism - TSH 0.281 (low). - Tobacco abuse - patient is counseled regarding tobacco cessation. Full code. SCDtaqueria. Arlette Carolina DO Nov 07, 2017 6:13 pm
--- NOTE | 2017-11-07 18:23 | MB ---
cc: SAJAN PAIZ M.D. DATE OF CONSULTATION 11/07/2017 DATE OF [address] Carolina REASON FOR REFERRAL Severe elevation of liver function tests. HISTORY OF THE PRESENT ILLNESS Thank you for the consultation. A 47-year-old lady who has been in reasonable health except in the last few weeks where she felt general malaise and in the last few days she started having nausea and vomiting, severe jaundice in the last 48 hours. The patient felt feverish in the last few days and she stated that she was having abdominal pain mostly in the right upper quadrant and right abdomen. The patient denied any other problem as far as recent travel. She had an ex-boyfriend who had hepatitis C and apparently he used drugs. No blood transfusion. No tattoos. No IV drug use according to her. Denied any other problem. REVIEW OF SYSTEMS All 12-point negative except HPI. MEDICATIONS Reviewed in the chart. PAST SURGICAL HISTORY Appendectomy. PAST MEDICAL HISTORY Significant for: 1. Anxiety. 2. Hypertension. ALLERGIES CEFTRIAXONE, DOXYCYCLINE, SULFA. OTHER ANTIBIOTICS DOCUMENTED IN THE CHART. FAMILY HISTORY Significant for hypertension and esophageal cancer. SOCIAL HISTORY She smoked one pack a day. No alcohol or drugs. PHYSICAL EXAMINATION GENERAL: Alert, oriented, in no acute distress. VITAL SIGNS: Stable. HEENT: Pupils are equal, round reactive to light. NECK: Supple. The patient is severely jaundiced with scleral icterus. CARDIOVASCULAR: Regular rate and rhythm. No murmur or gallop. ABDOMEN: Soft, mild tenderness in the right upper quadrant. Positive bowel sounds. EXTREMITIES: No edema, clubbing or cyanosis. NEUROLOGIC: Intact. PSYCHOLOGIC: Appropriate. LABORATORY DATA Normal CBC, white count 6.2, hemoglobin 13.8, platelet 202. INR 1.3. AST 1006, ALT 955. Alkaline phosphatase 273. Total bilirubin 11, mostly transaminase improving. Lipase 154. Toxicology positive for benzo. Serology hepatitis A was negative. Hepatitis C surface antigen positive. Hep B core IgM reactive. Hepatitis C antibody was negative. IMAGING Abdominal CT scan, no acute abnormalities in particular. No appreciable biliary dilation. Bile duct was limited because of lack of IV contrast. Ultrasound minimal amount of free fluid in the liver. Gallbladder contracted. No mass. ASSESSMENT/PLAN 1. A 47-year-old lady with severe elevation of liver function tests, severe jaundice and positive hepatitis B. Most likely this is a acute encounter in the last few months. The patient had symptoms for the last few days. Recommend low fat diet. 2. Follow up liver function tests. March followup INR. 3. Hepatitis B DNA, viral load. 4. Repeat the DNA in three months after discharge to see if she still has it or not. 5. Supportive care. MD NIYAH Romero/KK /3:45 PM /5:55 PM
[2017-11-07 20:00] VITALS: BP 127/67; PULSE 66; RESP 20; TEMP 97.7; O2SAT 96
[2017-11-07] MEDS: ONDANSETRON HCL 4 MG/2 ML VIAL IVP PRN (21:51)
[2017-11-07] MEDS ORDERED: diphenhydrAMINE HCL 25 MG CAP PO ONE (22:30)
[2017-11-08] MEDS: MORPHINE SULFATE 4 MG/ML INJ IV PUSH PRN ×3 (01:39→08:25)
[2017-11-08] MEDS: ONDANSETRON HCL 4 MG/2 ML VIAL IVP PRN ×4 (04:03→20:28)
[2017-11-08] MEDS: D5-NS + KCL 20 MEQ INJ 1,000 ML IV SCH ×2 (05:02→17:52)
[2017-11-08 08:00] VITALS: BP 100/72; PULSE 66; RESP 16; TEMP 96.8; O2SAT 98
[2017-11-08] MEDS: SODIUM CHLORIDE 0.9% FLUSH 10 ML FLUSH IV FLUSH SCH ×2 (08:08→20:23)
[2017-11-08 10:11] LABS: TOTAL BILIRUBIN ADULT 12.6 MG/DL (0.2-1.0)
[2017-11-08] MEDS: clonazePAM 0.5 MG TAB PO PRN (11:32)
[2017-11-08 12:00] VITALS: BP 118/76; PULSE 58; RESP 14; TEMP 96.1; O2SAT 98
--- NOTE | 2017-11-08 12:25 | HHI.PR ---
Subjective Remarks Follow-up for hepatitis B, jaundice, hyperbilirubinemia. Patient has persistent right lower abd pain. No fever, chills. Objective Vitals Vital Signs Date Time Temp Pulse Resp B/P (MAP) Pulse Ox O2 Delivery O2 Flow Rate FiO2 11/08/17 08:00 96.8 66 16 100/72 (81) 98 11/07/17 20:00 97.7 66 20 127/67 (87) 96 11/07/17 16:00 98.0 69 16 170/74 (106) 95 I/O 11/07/17 11/07/17 11/07/17 11/08/17 11/08/17 11/08/17 07:00 15:00 23:00 07:00 15:00 23:00 Intake Total 855 ml 1740 ml 1260 ml Balance 855 ml 1740 ml 1260 ml Intake Oral 480 ml 600 ml 480 ml IV Total 375 ml 1140 ml 780 ml # Voids 4 6 # Bowel Movements 0 0 Result Diagram: 11/07/17 0525 11/07/17 0525 Imaging Last Impressions Abdomen/Pelvis CT 11/06/17 1522 Signed Impressions: Service Date/Time: Monday, November 06, 2017 15:46 - CONCLUSION: 1. No acute abnormality. In particular, no appreciable biliary dilatation. Evaluation of the bile ducts is somewhat limited due to the lack of IV contrast. 2. 2 mm nonobstructing right renal stone. Ike Abdi Jr., MD Gall Bladder Ultrasound 11/06/17 0000 Signed Impressions: Service Date/Time: Monday, November 06, 2017 17:14 - CONCLUSION: Minimal amount of free fluid around the liver. Gallbladder is contracted. No concerning solid mass.. Vickey Jones MD Objective Remarks GENERAL: Alert, oriented 3, NAD. SKIN: Warm and dry. Jaundiced skin HEAD: Normocephalic. EYES: scleral icterus. No injection or drainage. NECK: Supple, trachea midline. No JVD or lymphadenopathy. CARDIOVASCULAR: Regular rate and rhythm without murmurs, gallops, or rubs. RESPIRATORY: Breath sounds equal bilaterally. No accessory muscle use. GASTROINTESTINAL: Abdomen soft, tender to palpation over right lower quadrant, nondistended. MUSCULOSKELETAL: No cyanosis, or edema. BACK: Nontender without obvious deformity. No CVA tenderness. A/P Problem List: (1) Jaundice ICD Code: R17 - Unspecified jaundice Status: Acute (2) Hyperbilirubinemia ICD Code: E80.6 - Other disorders of bilirubin metabolism Status: Acute (3) Hypothyroidism ICD Code: E03.9 - Hypothyroidism, unspecified (4) Anxiety ICD Code: F41.9 - Anxiety disorder, unspecified Assessment and Plan Ms. Spicer is a pleasant 47-year-old female with a history of hypothyroidism, anxiety who presents to the emergency department due to one week duration of right lower quadrant abdominal pain, brownish colored urine, jaundiced skin and icteric sclera. Patient reports no outside the country travel. She is sexually active with her ex-boyfriend who has hepatitis C. No recent tattoos. - Probable acute hepatitis B - Jaundice - Hyperbilirubinemia - Initial AST 1329, ALT 1237, alkaline phosphatase 342. Total bilirubin 11.2 direct bilirubin 8.5. Lipase 154. - Liver enzymes, total bilirubin, INR increasing. AST 1036, ALT 996, Alk Phos 273, Total Bilirubin 12.6, INR 1.3. - Hepatitis B DNA Quant pending. - GI following. - Oxycodone, Morphine for pain PRN. - Mild hyponatremia - Mild hypokalemia - Sodium 131 --> 135 potassium 3.4 --> 3.6. - We'll Continue patient on D5 normal saline with potassium chloride. - Anxiety - continue Klonopin 0.5 mg twice a day when necessary - Hypothyroidism - TSH 0.281 (low). - Tobacco abuse - patient has been counseled regarding tobacco cessation. Full code. SCDtaqueria. Arlette Carolina DO Nov 08, 2017 12:25 pm
[2017-11-08] MEDS: MORPHINE SULFATE 2 MG/ML INJ IV PUSH PRN ×2 (12:49→20:24)
--- NOTE | 2017-11-08 13:31 | HHI.GIFU ---
Subjective Remarks laying in bed seems to be comfortable but still complaining of significant weakness and severe jaundice, no other complaint at this time Objective Vitals I&O Vital Signs Date Time Temp Pulse Resp B/P (MAP) Pulse Ox O2 Delivery O2 Flow Rate FiO2 11/08/17 12:00 96.1 58 14 118/76 (90) 98 11/08/17 08:00 96.8 66 16 100/72 (81) 98 11/07/17 20:00 97.7 66 20 127/67 (87) 96 11/07/17 16:00 98.0 69 16 170/74 (106) 95 I/O 11/07/17 11/07/17 11/07/17 11/08/17 11/08/17 11/08/17 06:59 14:59 22:59 06:59 14:59 22:59 Intake Total 855 ml 1740 ml 1260 ml Balance 855 ml 1740 ml 1260 ml Intake Oral 480 ml 600 ml 480 ml IV Total 375 ml 1140 ml 780 ml # Voids 4 6 # Bowel Movements 0 0 Laboratory Laboratory Tests Test 11/08/17 08:15 Total Bilirubin 12.6 Direct Bilirubin 9.6 Indirect Bilirubin 3.0 Aspartate Amino Transf (AST/SGOT) 1036 Alanine Aminotransferase (ALT/SGPT) 996 Alkaline Phosphatase 273 Total Protein 5.9 Albumin 2.6 Date/Time Source Procedure Growth Status 11/06/17 16:15 Blood Peripheral Aerobic Blood Culture - Preliminary NO GROWTH IN 2 DAYS Resulted 11/06/17 16:15 Blood Peripheral Anaerobic Blood Culture - Preliminary NO GROWTH IN 2 DAYS Resulted 11/06/17 15:15 Urine Clean Catch Urine Culture - Final Escherichia Coli Complete Physical Exam HEENT: Pupils round and reactive to light; normocephalic; atraumatic; severe jaundice. Throat is clear. NECK: Neck is supple, no JVD, no lymphadenopathy. CHEST: Chest is clear to auscultation and percussion. CARDIAC: Regular rate and rhythm with no murmur gallop or rubs. ABDOMEN: Soft, nondistended, mild diffuse tenderness mostly in the right upper quadrant ; no hepatosplenomegaly; bowel sounds are present in all four quadrants. EXTREMITIES: No clubbing, cyanosis, or edema. SKIN: Normal; no rash; severe jaundice. FIELD COURT RESEARCHER: No focal deficits; alert and oriented times three. Assessment and Plan Plan This is a 47-year-old lady with acute hepatitis most likely hepatitis B most likely sexually transmitted since she has a ex-partner who has hepatitis C and possibly hep B, she denied any drug abuse at this time no blood transfusion or new tattoo Her liver enzyme is more elevated today We will check INR and liver enzymes tomorrow Low fat diet Supportive care Carlos Evans MD Nov 08, 2017 13:31
[2017-11-08] MEDS ORDERED: ACETAMINOPHEN/HYDROcodone 325 MG/7.5 MG TAB PO PRN (14:00)
[2017-11-08 16:00] VITALS: BP 111/78; PULSE 56; RESP 16; TEMP 98; O2SAT 99
[2017-11-08 20:00] VITALS: BP 129/69; PULSE 61; RESP 20; TEMP 97.5; O2SAT 97
[2017-11-08] MEDS ORDERED: ONDANSETRON HCL 4 MG/2 ML VIAL IV PUSH ONE (21:30)
[2017-11-09] VITALS: BP 112/65; PULSE 58; RESP 20; TEMP 97.5; O2SAT 99
[2017-11-09] MEDS: clonazePAM 0.5 MG TAB PO PRN ×3 (01:15→20:23)
[2017-11-09] MEDS: TEMAZEPAM 15 MG CAP PO PRN ×2 (01:15→23:52)
[2017-11-09] MEDS: MORPHINE SULFATE 2 MG/ML INJ IV PUSH PRN ×2 (01:26→08:24)
[2017-11-09] MEDS: D5-NS + KCL 20 MEQ INJ 1,000 ML IV SCH ×2 (05:54→17:39)
[2017-11-09 06:28] LABS: INTERNATIONAL NORMALIZED RATIO 1.4 RATIO; PROTHROMBIN TIME - PATIENT 14.4 SEC (9.8-11.6)
[2017-11-09 06:38] LABS: INDIRECT BILIRUBIN 3.1 MG/DL (0.0-0.8); TOTAL BILIRUBIN ADULT 13.7 MG/DL (0.2-1.0)
[2017-11-09 08:00] VITALS: BP 111/65; PULSE 63; RESP 18; TEMP 97.4; O2SAT 97
[2017-11-09] MEDS: ONDANSETRON HCL 4 MG/2 ML VIAL IVP PRN ×3 (08:25→21:07)
[2017-11-09] MEDS: SODIUM CHLORIDE 0.9% FLUSH 10 ML FLUSH IV FLUSH SCH ×2 (09:00→20:06)
[2017-11-09 10:01] LABS: FREE T3 1.86 PG/ML (2.18-3.98); FREE T4 1.09 NG/DL (0.76-1.46)
[2017-11-09 12:00] VITALS: BP 112/69; PULSE 60; RESP 18; TEMP 97.5; O2SAT 96
--- NOTE | 2017-11-09 12:35 | HHI.PR ---
Subjective Remarks Patient seen and examined today for follow-up on acute hepatitis B infection. Patient lying in bed, appears to be comfortable. Stating that she is still having pain in her abdomen, patient is rubbing across her lower abdomen indicating that is where the pain is located. LFTs have not had any significant improvement. As indicated by nursing staff that the patient no longer wishes to have morphine for pain control Objective Vital Signs Date Time Temp Pulse Resp B/P (MAP) Pulse Ox O2 Delivery O2 Flow Rate FiO2 11/09/17 08:00 97.4 63 18 111/65 (80) 97 11/09/17 00:00 97.5 58 20 112/65 (81) 99 11/08/17 20:00 97.5 61 20 129/69 (89) 97 11/08/17 16:00 98.0 56 16 111/78 (89) 99 I/O 11/08/17 11/08/17 11/08/17 11/09/17 11/09/17 11/09/17 07:00 15:00 23:00 07:00 15:00 23:00 Intake Total 1260 ml 480 ml 1480 ml Balance 1260 ml 480 ml 1480 ml Intake Oral 480 ml 480 ml 480 ml IV Total 780 ml 1000 ml # Voids 6 5 8 # Bowel Movements 0 3 0 Result Diagram: 11/07/17 0525 11/07/17 0525 Imaging Last Impressions Abdomen/Pelvis CT 11/06/17 1522 Signed Impressions: Service Date/Time: Monday, November 06, 2017 15:46 - CONCLUSION: 1. No acute abnormality. In particular, no appreciable biliary dilatation. Evaluation of the bile ducts is somewhat limited due to the lack of IV contrast. 2. 2 mm nonobstructing right renal stone. Ike Abdi Jr., MD Gall Bladder Ultrasound 11/06/17 0000 Signed Impressions: Service Date/Time: Monday, November 06, 2017 17:14 - CONCLUSION: Minimal amount of free fluid around the liver. Gallbladder is contracted. No concerning solid mass.. Vickey Jones MD Objective Remarks GENERAL: Well-developed, well-nourished, in no acute distress. alert and orientated. Patient is jaundice HEENT: Head is normocephalic without any lesions or masses noted. Facial features are symmetric. Eyes: Extraocular muscles are intact. Conjunctivae were icteric NECK: Supple without any masses. Trachea midline no deviation. No JVD, CARDIAC: Regular rhythm, regular rate. S1/S2 are heard. No murmurs gallops or rubs. LUNGS: Clear to auscultation bilaterally. No wheeze, rhonchi or rales. No use of accessory muscles on inspiration or expiration. ABDOMEN: Soft, nontender. Nondistended. Bowel sounds heard in all 4 quadrants. No organomegaly or masses. Negative rebound, negative guarding EXTREMITIES: No edema, pulses are equal bilaterally. No cyanosis or clubbing NEUROLOGY: Mood and affect appear appropriate. Cranial nerves II through XII grossly intact. Moving all extremities, speech is clear A/P Assessment and Plan Ms. Spicer is a pleasant 47-year-old female with a history of hypothyroidism, anxiety who presents to the emergency department due to one week duration of right lower quadrant abdominal pain, brownish colored urine, jaundiced skin and icteric sclera. Patient reports no outside the country travel. She is sexually active with her ex-boyfriend who has hepatitis C. No recent tattoos. Acute hepatitis B Patient presented with Jaundice and found to have Hyperbilirubinemia LFTs still significantly elevated with worsening hyperbilirubinemia, continue monitor Mild coagulopathy with INR 1.4, continue to monitor Awaiting Hepatitis B DNA Quant pending. GI following. Oxycodone for pain control, patient requesting no longer to use Morphine for pain Likely abnormality with Hyponatremia, hypokalemia Continue IV fluid Monitor electrolytes and replete as needed Anxiety continue Klonopin 0.5 mg twice a day when necessary Hypothyroidism , likely sick euthyroid TSH 0.281 (low). Free T4 1 0.09, free T3 1 0.86 Tobacco abuse patient has been counseled regarding tobacco cessation. DVT prevention Sequential compression devices CODE STATUS Full code Discharge Planning Discharge planning when cleared by GI and liver enzymes improved Randall Ceballos Nov 09, 2017 12:35
[2017-11-09 16:00] VITALS: BP 116/67; PULSE 63; RESP 18; TEMP 97.1; O2SAT 100
[2017-11-09 20:00] VITALS: BP 117/20; PULSE 60; RESP 18; TEMP 97.9; O2SAT 97
[2017-11-10] VITALS: BP 131/60; PULSE 53; RESP 18; TEMP 96.9; O2SAT 96
[2017-11-10] MEDS: ONDANSETRON HCL 4 MG/2 ML VIAL IVP PRN ×4 (06:00→23:54)
[2017-11-10] MEDS: D5-NS + KCL 20 MEQ INJ 1,000 ML IV SCH ×2 (06:00→18:06)
[2017-11-10 07:26] LABS: HEMATOCRIT 45.6 % (35.0-46.0); MEAN CELL VOLUME 87.2 FL (80.0-100.0); MEAN CORPUSCULAR HEMOGLOBIN 28.4 PG (27.0-34.0); MEAN CORPUSCULAR HGB CONC 32.6 % (32.0-36.0); PLATELET COUNT 268 TH/MM3 (150-450); RED BLOOD COUNT 5.23 MIL/MM3 (4.00-5.30); RED CELL DISTRIBUTION WIDTH 16.8 % (11.6-17.2); WHITE BLOOD COUNT 8.4 TH/MM3 (4.0-11.0)
[2017-11-10 07:48] LABS: INDIRECT BILIRUBIN 3.5 MG/DL (0.0-0.8); TOTAL BILIRUBIN ADULT 14.9 MG/DL (0.2-1.0)
[2017-11-10 07:51] LABS: HEMO FLAGS AUTO DIFF
[2017-11-10 08:00] VITALS: BP 109/67; PULSE 63; RESP 15; TEMP 97.4; O2SAT 97
[2017-11-10 08:07] LABS: EOSINOPHILS 2 % (0-4); NEUTROPHIL # MANUAL DIFF 5.4 TH/MM3 (1.8-7.7); POLYS (SEG NEUTROPHILS) 64 % (16-70); WBC DIFF SAMPLE 100
[2017-11-10 08:08] LABS: PLATELET ESTIMATE SMEAR NORMAL (NORMAL); PLATELET MORPHOLOGY NORMAL (NORMAL); SCAN/DIFF FINAL DIFF MANUAL
[2017-11-10] MEDS: SODIUM CHLORIDE 0.9% FLUSH 10 ML FLUSH IV FLUSH SCH ×2 (08:30→20:32)
[2017-11-10] MEDS: clonazePAM 0.5 MG TAB PO PRN ×2 (08:30→20:42)
[2017-11-10 08:44] LABS: INTERNATIONAL NORMALIZED RATIO 1.4 RATIO; PROTHROMBIN TIME - PATIENT 14.3 SEC (9.8-11.6)
--- NOTE | 2017-11-10 09:58 | HHI.PR ---
Subjective Remarks Patient seen and examined today for follow-up on acute hepatitis B infection. Patient lying in bed, appears to be comfortable. Patient does not indicate that she experiencing any pain at this time. She is asking if we can increase her anxiety medication. I discussed laboratory results with the patient extensively. Objective Vital Signs Date Time Temp Pulse Resp B/P (MAP) Pulse Ox O2 Delivery O2 Flow Rate FiO2 11/10/17 08:00 97.4 63 15 109/67 (81) 97 11/10/17 07:00 18 11/10/17 00:00 96.9 53 18 131/60 (83) 96 11/09/17 20:00 97.9 60 18 117/20 (52) 97 11/09/17 16:00 97.1 63 18 116/67 (83) 100 11/09/17 12:00 97.5 60 18 112/69 (83) 96 I/O 11/09/17 11/09/17 11/09/17 11/10/17 11/10/17 11/10/17 07:00 15:00 23:00 07:00 15:00 23:00 Intake Total 1480 ml 1080 ml 1395 ml 100 ml Balance 1480 ml 1080 ml 1395 ml 100 ml Intake Oral 480 ml 1080 ml 420 ml IV Total 1000 ml 975 ml 100 ml # Voids 8 8 2 # Bowel Movements 0 1 0 Result Diagram: 11/10/17 0710 11/07/17 0525 Objective Remarks GENERAL: Well-developed, well-nourished, in no acute distress. alert and orientated. Patient is jaundice HEENT: Head is normocephalic without any lesions or masses noted. Facial features are symmetric. Eyes: Extraocular muscles are intact. Conjunctivae were icteric NECK: Supple without any masses. Trachea midline no deviation. No JVD, CARDIAC: Regular rhythm, regular rate. S1/S2 are heard. No murmurs gallops or rubs. LUNGS: Clear to auscultation bilaterally. No wheeze, rhonchi or rales. No use of accessory muscles on inspiration or expiration. ABDOMEN: Soft, nontender. Nondistended. Bowel sounds heard in all 4 quadrants. No organomegaly or masses. Negative rebound, negative guarding EXTREMITIES: No edema, pulses are equal bilaterally. No cyanosis or clubbing NEUROLOGY: Mood and affect appear appropriate. Cranial nerves II through XII grossly intact. Moving all extremities, speech is clear A/P Assessment and Plan Ms. Spicer is a pleasant 47-year-old female with a history of hypothyroidism, anxiety who presents to the emergency department due to one week duration of right lower quadrant abdominal pain, brownish colored urine, jaundiced skin and icteric sclera. Patient reports no outside the country travel. She is sexually active with her ex-boyfriend who has hepatitis C. No recent tattoos. Acute hepatitis B Patient presented with Jaundice and found to have Hyperbilirubinemia LFTs still significantly elevated with worsening hyperbilirubinemia, continue monitor Mild coagulopathy with INR 1.4, continue to monitor Awaiting Hepatitis B DNA Quant pending. GI following. Oxycodone for pain control, patient requesting no longer to use Morphine for pain Electrolyte abnormality with Hyponatremia, hypokalemia Continue IV fluid Monitor electrolytes and replete as needed Anxiety continue Klonopin 0.5 mg twice a day when necessary Hypothyroidism , likely sick euthyroid TSH 0.281 (low). Free T4 1 0.09, free T3 1 0.86 Tobacco abuse patient has been counseled regarding tobacco cessation. DVT prevention Sequential compression devices CODE STATUS Full code Discharge Planning Discharge planning when cleared by GI and liver enzymes improved Randall Ceballos Nov 10, 2017 09:58
[2017-11-10 12:00] VITALS: BP 109/67; PULSE 73; RESP 16; O2SAT 97
[2017-11-10 16:00] VITALS: BP 117/64; PULSE 65; RESP 16; TEMP 98.8; O2SAT 98
[2017-11-10 20:00] VITALS: BP 121/65; PULSE 63; RESP 16; TEMP 98.1; O2SAT 98
[2017-11-10] MEDS: TEMAZEPAM 15 MG CAP PO PRN (23:57)
[2017-11-11] VITALS: BP 120/65; PULSE 57; RESP 16; TEMP 98.3; O2SAT 99
[2017-11-11] MEDS: D5-NS + KCL 20 MEQ INJ 1,000 ML IV SCH (05:26)
[2017-11-11] MEDS: ONDANSETRON HCL 4 MG/2 ML VIAL IVP PRN (05:53)
[2017-11-11 06:49] LABS: INTERNATIONAL NORMALIZED RATIO 1.5 RATIO; PROTHROMBIN TIME - PATIENT 14.7 SEC (9.8-11.6)
[2017-11-11 06:54] LABS: INDIRECT BILIRUBIN 3.9 MG/DL (0.0-0.8); TOTAL BILIRUBIN ADULT 15.8 MG/DL (0.2-1.0)
[2017-11-11 08:00] VITALS: BP 110/66; PULSE 62; RESP 18; TEMP 97.1; O2SAT 96
[2017-11-11] MEDS: SODIUM CHLORIDE 0.9% FLUSH 10 ML FLUSH IV FLUSH SCH (08:22)
[2017-11-11] MEDS: clonazePAM 0.5 MG TAB PO PRN (08:22)
--- NOTE | 2017-11-11 09:00 | HHI.GIFU ---
Subjective Remarks No change in general condition, no new symptoms. Objective Vitals I&O Vital Signs Date Time Temp Pulse Resp B/P (MAP) Pulse Ox O2 Delivery O2 Flow Rate FiO2 11/11/17 00:00 98.3 57 16 120/65 (83) 99 11/10/17 20:00 98.1 63 16 121/65 (83) 98 11/10/17 16:00 98.8 65 16 117/64 (81) 98 11/10/17 13:06 18 11/10/17 12:00 73 16 109/67 (81) 97 I/O 11/10/17 11/10/17 11/10/17 11/11/17 11/11/17 11/11/17 07:00 15:00 23:00 07:00 15:00 23:00 Intake Total 1395 ml 1510 ml 1200 ml 1000 ml Balance 1395 ml 1510 ml 1200 ml 1000 ml Intake Oral 420 ml 1410 ml 200 ml IV Total 975 ml 100 ml 1000 ml 1000 ml # Voids 2 2 2 # Bowel Movements 0 Laboratory Laboratory Tests Test 11/11/17 06:26 Prothrombin Time 14.7 Prothromb Time International Ratio 1.5 Total Bilirubin 15.8 Direct Bilirubin 11.9 Indirect Bilirubin 3.9 Aspartate Amino Transf (AST/SGOT) 729 Alanine Aminotransferase (ALT/SGPT) 959 Alkaline Phosphatase 263 Total Protein 6.2 Albumin 2.8 Date/Time Source Procedure Growth Status 11/06/17 16:15 Blood Peripheral Aerobic Blood Culture - Preliminary NO GROWTH IN 4 DAYS Resulted 11/06/17 16:15 Blood Peripheral Anaerobic Blood Culture - Preliminary NO GROWTH IN 4 DAYS Resulted 11/06/17 15:15 Urine Clean Catch Urine Culture - Final Escherichia Coli Complete Physical Exam HEENT: Pupils round and reactive to light; normocephalic; atraumatic; severe jaundice. Throat is clear. NECK: Neck is supple, no JVD, no lymphadenopathy. CHEST: Chest is clear to auscultation and percussion. CARDIAC: Regular rate and rhythm with no murmur gallop or rubs. ABDOMEN: Soft, nondistended, mild diffuse tenderness mostly in the right upper quadrant ; no hepatosplenomegaly; bowel sounds are present in all four quadrants. EXTREMITIES: No clubbing, cyanosis, or edema. SKIN: Normal; no rash; severe jaundice. TELEVISION RECEIVER ANALYZER: No focal deficits; alert and oriented times three. Assessment and Plan Plan Assessment: - Acute Hepatitis B, transaminitis peaked and bili still increasing. - HTN - Anxiety disorder Plan: - Daily labs include PT/INR - Low fat diet - Monitor for early signs of encephalopathy. - Supportive care - Vaccination to close contacts - Further recommendations to follow. Tejas Goel MD Nov 11, 2017 09:00
--- NOTE | 2017-11-11 09:04 | HHI.PR ---
Subjective Remarks Patient seen and examined today for follow-up on acute hepatitis B infection. Patient lying in bed, appears to be comfortable. Patient complaining of epigastric discomfort at this time.. I discussed laboratory results with the patient extensively. Objective Vital Signs Date Time Temp Pulse Resp B/P (MAP) Pulse Ox O2 Delivery O2 Flow Rate FiO2 11/11/17 00:00 98.3 57 16 120/65 (83) 99 11/10/17 20:00 98.1 63 16 121/65 (83) 98 11/10/17 16:00 98.8 65 16 117/64 (81) 98 11/10/17 13:06 18 11/10/17 12:00 73 16 109/67 (81) 97 I/O 11/10/17 11/10/17 11/10/17 11/11/17 11/11/17 11/11/17 07:00 15:00 23:00 07:00 15:00 23:00 Intake Total 1395 ml 1510 ml 1200 ml 1000 ml Balance 1395 ml 1510 ml 1200 ml 1000 ml Intake Oral 420 ml 1410 ml 200 ml IV Total 975 ml 100 ml 1000 ml 1000 ml # Voids 2 2 2 # Bowel Movements 0 Result Diagram: 11/10/17 0710 11/07/17 0525 Objective Remarks GENERAL: Well-developed, well-nourished, in no acute distress. alert and orientated. Patient is jaundice HEENT: Head is normocephalic without any lesions or masses noted. Facial features are symmetric. Eyes: Extraocular muscles are intact. Conjunctivae were icteric NECK: Supple without any masses. Trachea midline no deviation. No JVD, CARDIAC: Regular rhythm, regular rate. S1/S2 are heard. No murmurs gallops or rubs. LUNGS: Clear to auscultation bilaterally. No wheeze, rhonchi or rales. No use of accessory muscles on inspiration or expiration. ABDOMEN: Soft, nontender. Nondistended. Bowel sounds heard in all 4 quadrants. No organomegaly or masses. Negative rebound, negative guarding EXTREMITIES: No edema, pulses are equal bilaterally. No cyanosis or clubbing NEUROLOGY: Mood and affect appear appropriate. Cranial nerves II through XII grossly intact. Moving all extremities, speech is clear A/P Assessment and Plan Ms. Spicer is a pleasant 47-year-old female with a history of hypothyroidism, anxiety who presents to the emergency department due to one week duration of right lower quadrant abdominal pain, brownish colored urine, jaundiced skin and icteric sclera. Patient reports no outside the country travel. She is sexually active with her ex-boyfriend who has hepatitis C. No recent tattoos. Acute hepatitis B Patient presented with Jaundice and found to have Hyperbilirubinemia LFTs still significantly elevated with worsening hyperbilirubinemia, continue monitor Mild coagulopathy with INR 1.5, continue to monitor Awaiting Hepatitis B DNA Quant pending. GI following. Discussed with GI who indicated patient to remain hospitalized until improvement of bilirubin and stabilization of INR Oxycodone for pain control, patient requesting no longer to use Morphine for pain Epigastric abdominal discomfort Check lipase level Start Pepcid Electrolyte abnormality with Hyponatremia, hypokalemia Continue IV fluid Monitor electrolytes and replete as needed Anxiety continue Klonopin 0.5 mg twice a day when necessary Hypothyroidism , likely sick euthyroid TSH 0.281 (low). Free T4 1 0.09, free T3 1 0.86 Tobacco abuse patient has been counseled regarding tobacco cessation. DVT prevention Sequential compression devices CODE STATUS Full code Discharge Planning Discharge planning when cleared by GI and liver enzymes improved Randall Ceballos Nov 11, 2017 09:04
[2017-11-11] MEDS ORDERED: FAMOTIDINE 20 MG TAB PO SCH (10:00)
--- NOTE | 2017-11-11 10:27 | HHI.DS ---
Discharge Summary Admission Date Nov 06, 2017 at 17:50 Discharge Date: Nov 11, 2017 Admitting Diagnosis acute hepatitis, hyperbilirubinemia, jaundice, UTI (1) Hepatitis B infection ICD Code: B19.10 - Unspecified viral hepatitis B without hepatic coma (2) Jaundice ICD Code: R17 - Unspecified jaundice Status: Acute (3) Hyperbilirubinemia ICD Code: E80.6 - Other disorders of bilirubin metabolism Status: Acute (4) Hypothyroidism ICD Code: E03.9 - Hypothyroidism, unspecified (5) Anxiety ICD Code: F41.9 - Anxiety disorder, unspecified Procedures None Brief History - From Admission Ms. Spicer is a 47-year-old female with a history of hypothyroidism who presents to the emergency department on the 2016 due to right lower abdominal pain, brownish color urine, icteric sclera that started about 1 week prior to this admission. Patient also reports fever on and off and chills as well. She reports nausea vomiting for for 5 days. She mostly complains of right lower quadrant pain but also some right upper quadrant abdominal pain. She reports no recent travel outside the country. She is sexually active with her ex-boyfriend who has hepatitis C. No recent tattoos. Patient reports no chest pain, cough, diarrhea or constipation. CBC/BMP: 11/10/17 0710 11/07/17 0525 Significant Findings Laboratory Tests Test 11/09/17 06:05 11/10/17 07:10 11/11/17 06:26 Prothrombin Time 14.4 SEC (9.8-11.6) 14.3 SEC (9.8-11.6) 14.7 SEC (9.8-11.6) Total Bilirubin 13.7 MG/DL (0.2-1.0) 14.9 MG/DL (0.2-1.0) 15.8 MG/DL (0.2-1.0) Direct Bilirubin 10.6 MG/DL (0.0-0.2) 11.4 MG/DL (0.0-0.2) 11.9 MG/DL (0.0-0.2) Indirect Bilirubin 3.1 MG/DL (0.0-0.8) 3.5 MG/DL (0.0-0.8) 3.9 MG/DL (0.0-0.8) Aspartate Amino Transf (AST/SGOT) 961 U/L (15-37) 874 U/L (15-37) 729 U/L (15-37) Alanine Aminotransferase (ALT/SGPT) 995 U/L (10-53) 1015 U/L (10-53) 959 U/L (10-53) Alkaline Phosphatase 267 U/L (45-117) 252 U/L (45-117) 263 U/L (45-117) Total Protein 5.9 GM/DL (6.4-8.2) 5.9 GM/DL (6.4-8.2) 6.2 GM/DL (6.4-8.2) Albumin 2.6 GM/DL (3.4-5.0) 2.6 GM/DL (3.4-5.0) 2.8 GM/DL (3.4-5.0) Imaging Last Impressions Abdomen/Pelvis CT 11/06/17 1522 Signed Impressions: Service Date/Time: Monday, November 06, 2017 15:46 - CONCLUSION: 1. No acute abnormality. In particular, no appreciable biliary dilatation. Evaluation of the bile ducts is somewhat limited due to the lack of IV contrast. 2. 2 mm nonobstructing right renal stone. Ike Abdi Jr., MD Gall Bladder Ultrasound 11/06/17 0000 Signed Impressions: Service Date/Time: Monday, November 06, 2017 17:14 - CONCLUSION: Minimal amount of free fluid around the liver. Gallbladder is contracted. No concerning solid mass.. Vickey Jones MD PE at Discharge GENERAL: Alert, oriented 3, NAD. SKIN: Warm and dry. Jaundiced skin HEAD: Normocephalic. EYES: scleral icterus. No injection or drainage. NECK: Supple, trachea midline. No JVD or lymphadenopathy. CARDIOVASCULAR: Regular rate and rhythm without murmurs, gallops, or rubs. RESPIRATORY: Breath sounds equal bilaterally. No accessory muscle use. GASTROINTESTINAL: Abdomen soft, tender to palpation over right lower quadrant, nondistended. MUSCULOSKELETAL: No cyanosis, or edema. BACK: Nontender without obvious deformity. No CVA tenderness. Hospital Course 47-year-old female. They presented to hospital on 11/06/17. Patient presented because she was experiencing lower abdominal pain, brown urine, jaundice, yellow sclera. Patient had workup done in found to have significantly elevated liver enzymes and hyperbilirubinemia. Imaging studies were performed which did not indicate any acute abnormality. Patient had vital hepatic panel performed which did indicate acute hepatitis B infection. Further studies were sent for quantitative hepatitis be vital load. Patient did have increased risk because her boyfriend does have positive hepatitis C. Patient's Lipitor studies were monitored daily with LFTs and PT/INR. Patient still having progressive elevation in total bilirubin, however AST/ALT has started to have a downward trend. PT/INR is still elevated. Case was discussed multiple times with comic book designer and they indicate that the patient should remain hospitalized until bilirubin has plateaued and started to decline. Patient still has possibility of developing liver failure, severe coagulopathy. This was discussed with the patient on a daily basis. However today she indicates that she wants to leave the hospital to smoke a cigarette. I discussed with her the possible negative outcomes of leaving AGAINST MEDICAL ADVICE to include liver failure, potential bleeding and possible . Patient is not concerned about that. She only wants to leave the hospital. Despite further counseling and expiration patient is still planning to leave the hospital AGAINST MEDICAL ADVICE. I notified her that she is welcome to return to the hospital at any time for us to continue management. That she should report to the emergency department for evaluation and likely readmission. Pt Condition on Discharge: Guarded Discharge Disposition: Discharge Home Discharge Time: <= 30 minutes Randall Ceballos Nov 11, 2017 10:27
[2017-11-11 23:52] LABS: HEP B DNA R2 6.03 (<1.30)
== END 2017-11-11 10:19 | disposition left against medical advice (07) | DRG 442 ==
LOC: PHED 15:00 → PHEDA 17:50 → PH3A 19:45
PROVIDERS: ADMIT Hospitalist; ATTEND Hospitalist
DX: B16.9 Acute hepatitis B without delta-agent and without hepatic coma (principal); E87.1 Hypo-osmolality and hyponatremia; D68.9 Coagulation defect, unspecified; E80.6 Other disorders of bilirubin metabolism; I10 Essential (primary) hypertension; F17.210 Nicotine dependence, cigarettes, uncomplicated; E03.9 Hypothyroidism, unspecified; E87.6 Hypokalemia; F41.9 Anxiety disorder, unspecified; Z23 Encounter for immunization
CPT/HCPCS: 74176; 76705; 80053; 80074; 80076; 80307; 81001; 82248; 83605; 83690; 84439; 84443; 84481; 84703; 85007; 85025; 85027; 85610; 85730; 87040; 87077; 87086; 87186; 87517; 90686; 90732; 96361; 96365; 96375; J1885; J1956; J2270; J2405; J3480; J7030; Q2038

== ENCOUNTER 2017-11-26 15:49 | Inpatient (IN) | payer OTHER ==
[~2017-11-26] VITALS: Ht 177.8 cm; Wt 68.8 kg
[2017-11-26 15:53] VITALS: BP 134/79; PULSE 109; RESP 20; TEMP 98.1; O2SAT 98
[2017-11-26] MEDS ORDERED: SODIUM CHLORIDE 0.9% FLUSH 10 ML FLUSH IV FLUSH PRN (16:15)
[2017-11-26] MEDS ORDERED: MORPHINE SULFATE 2 MG/ML INJ IV PUSH ONE (16:30)
[2017-11-26] MEDS ORDERED: ONDANSETRON HCL 4 MG/2 ML VIAL IV PUSH ONE (16:30)
[2017-11-26] MEDS ORDERED: SODIUM CHLOR 0.9% 1000 ML INJ 1,000 ML IV ONE (16:30)
[2017-11-26 16:47] LABS: HEMATOCRIT 37.8 % (35.0-46.0); HEMOGLOBIN 12.7 GM/DL (11.6-15.3); MEAN CELL VOLUME 86.2 FL (80.0-100.0); MEAN CORPUSCULAR HGB CONC 33.7 % (32.0-36.0); MEAN PLATELET VOLUME 8.9 FL (7.0-11.0); PLATELET COUNT 172 TH/MM3 (150-450); RED BLOOD COUNT 4.38 MIL/MM3 (4.00-5.30); RED CELL DISTRIBUTION WIDTH 21.9 % (11.6-17.2); WHITE BLOOD COUNT 5.8 TH/MM3 (4.0-11.0)
--- NOTE | 2017-11-26 16:49 | PD ---
HPI . Abdominal pain Chief Complaint: GI Complaint Time Seen by Provider: 16:04 Travel History International Travel<30 days: No Contact w/Intl Traveler<30days: No Traveled to known affect area: No History of Present Illness HPI This patient was admitted to the hospital from November 06-November 11 for acute hepatitis B with associated jaundice. She was evaluated by gastroenterology while in the hospital. Her liver function studies were followed. The general farm hand reportedly wanted her to be in the hospital until her bilirubin was trending downward. However, the patient was very anxious to leave and left AMA on 11/11. Her bilirubin that day was 15.8. The bilirubin was still rising at the time of her departure from the hospital. The patient states that she has continued to get progressively worse since leaving the hospital. She reports very poor appetite, nausea and increasing right upper quadrant abdominal pain. She states that she is now prepared stay in the hospital. She rates her abdominal pain as 10/10 with no modifying factors. She states that she has not been taking anything at home for the pain because she knows that she is not supposed be taking Tylenol. She has been reluctant to take anything for fear that it will complicate her liver disease. PFSH Past Medical History Hx Anticoagulant Therapy: No Asthma: No Autoimmune Disease: No Bipolar Disorder: Yes Anxiety: Yes (PANIC ATTACKS) Depression: Yes (POST TRAUMATIC STRESS DISORDER) Cancer: No Cardiovascular Problems: No Chemotherapy: No Cirrhosis: Yes Cerebrovascular Accident: No Diabetes: No Diminished Hearing: No Genitourinary: No Hepatitis: Yes (B AND C) Immune Disorder: No Neurologic: No Reproductive: No Respiratory: No Immunizations Current: Yes Thyroid Disease: Yes Tetanus Vaccination: < 5 Years Influenza Vaccination: Yes ?: Not LMP: NOW : 3 Miscarriage: 2 : 1 Past Surgical History Abdominal Surgery: Yes (appendectomy 1998) Appendectomy: Yes (1998) Genitourinary Surgery: No Hysterectomy: No Thoracic Surgery: No Other Surgery: Yes (RHINOPLASTY- 1998, BLEPHAROPLASTY 1998) Family History Family Myocardial Infarction: Yes (MOTHER AT AGE 35) Social History Alcohol Use: No Tobacco Use: Yes (1 PPD) Substance Use: No Allergies-Medications (Allergen,Severity, Reaction): Coded Allergies: Sulfa (Sulfonamide Antibiotics) (Unverified Allergy, Severe, SOB, HIVES, FREAK OUT, 11/26/17) cefuroxime (Unverified Allergy, Severe, SHOCK, 11/26/17) doxycycline (Unverified Allergy, Severe, SOB, HIVES FREAK OUT, 11/26/17) minocycline (Unverified Allergy, Severe, SOB, HIVES FREAK OUT, 11/26/17) risperidone (Unverified Allergy, Severe, Anaphylaxis, 11/26/17) tigecycline (Unverified Allergy, Severe, SOB, HIVES FREAK OUT, 11/26/17) Reported Meds & Prescriptions Reported Meds & Active Scripts Active No Active Prescriptions or Reported Medications Review of Systems Except as stated in HPI: all other systems reviewed are Neg General / Constitutional: No: Fever, Chills Eyes: Positive: Other (yellow eyes) Gastrointestinal: Positive: Nausea, Abdominal Pain, Loss of Appetite Skin: Positive Change in Pigmentation Physical Exam Narrative GENERAL: Awake and alert. Anxious appearing. SKIN: warm/dry. Jaundiced. HEAD: Normocephalic. Atraumatic. EYES: Pupils equal and round. She is wearing blue contacts. She has significant scleral icterus. ENT: No nasal bleeding or discharge. Mucous membranes pink but dry. NECK: Trachea midline. Full range of motion without pain.. CARDIOVASCULAR: Regular rate and rhythm. Heart sounds are normal. RESPIRATORY: No accessory muscle use. Clear to auscultation. Breath sounds equal bilaterally. GASTROINTESTINAL: Abdomen soft. Right upper quadrant tenderness. Liver is palpable to below the umbilicus. Bowel sounds present. No obvious ascites. MUSCULOSKELETAL: No obvious deformities. NEUROLOGICAL: Awake and alert. No obvious cranial nerve deficits. Motor grossly within normal limits. Normal speech. PSYCHIATRIC: Appropriate mood and affect; insight and judgment normal. Data Data Last Documented VS Vital Signs Date Time Temp Pulse Resp B/P (MAP) Pulse Ox O2 Delivery O2 Flow Rate FiO2 11/26/17 17:35 83 17 119/83 (95) 98 Room Air 11/26/17 15:53 98.1 Orders Orders Complete Blood Count With Diff (11/26/17 16:09) Comprehensive Metabolic Panel (11/26/17 16:09) Prothrombin Time / Inr (Pt) (11/26/17 16:09) Act Partial Throm Time (Ptt) (11/26/17 16:09) Iv Access Insert/Monitor (11/26/17 16:09) Sodium Chloride 0.9% Flush (Ns Flush) (11/26/17 16:15) Sodium Chlor 0.9% 1000 Ml Inj (Ns 1000 M (11/26/17 16:30) Ondansetron Inj (Zofran Inj) (11/26/17 16:30) Morphine Inj (Morphine Inj) (11/26/17 16:30) Ammonia (11/26/17 16:28) Admit Order (Ed Use Only) (11/26/17 ) Vital Signs (Adult) Q4H (11/26/17 17:54) Diet Npo (11/26/17 Dinner) Activity Oob With Assistance (11/26/17 17:54) Notify Dr: Other (11/26/17 17:54) Labs Laboratory Tests Test 11/26/17 16:30 White Blood Count 5.8 TH/MM3 Red Blood Count 4.38 MIL/MM3 Hemoglobin 12.7 GM/DL Hematocrit 37.8 % Mean Corpuscular Volume 86.2 FL Mean Corpuscular Hemoglobin 29.0 PG Mean Corpuscular Hemoglobin Concent 33.7 % Red Cell Distribution Width 21.9 % Platelet Count 172 TH/MM3 Mean Platelet Volume 8.9 FL Neutrophils (%) (Auto) % Lymphocytes (%) (Auto) % Monocytes (%) (Auto) % Eosinophils (%) (Auto) % Basophils (%) (Auto) % Neutrophils # (Auto) TH/MM3 Lymphocytes # (Auto) TH/MM3 Monocytes # (Auto) TH/MM3 Eosinophils # (Auto) TH/MM3 Basophils # (Auto) TH/MM3 CBC Comment AUTO DIFF Differential Total Cells Counted 100 Neutrophils % (Manual) 49 % Lymphocytes % 29 % Monocytes % 10 % Eosinophils % 12 % Neutrophils # (Manual) 2.8 TH/MM3 Differential Comment FINAL DIFF MANUAL Platelet Estimate NORMAL Platelet Morphology Comment NORMAL Target Cells 1+ Prothrombin Time 11.4 SEC Prothromb Time International Ratio 1.1 RATIO Activated Partial Thromboplast Time 30.3 SEC Blood Urea Nitrogen 5 MG/DL Creatinine 0.53 MG/DL Random Glucose 64 MG/DL Total Protein 5.9 GM/DL Albumin 2.5 GM/DL Calcium Level 8.1 MG/DL Alkaline Phosphatase 153 U/L Aspartate Amino Transf (AST/SGOT) 333 U/L Alanine Aminotransferase (ALT/SGPT) 223 U/L Total Bilirubin 10.0 MG/DL Sodium Level 142 MEQ/L Potassium Level 3.4 MEQ/L Chloride Level 109 MEQ/L Carbon Dioxide Level 26.8 MEQ/L Anion Gap 6 MEQ/L Estimat Glomerular Filtration Rate 123 ML/MIN Ammonia 47 MCMOL/L MDM Medical Decision Making Medical Screen Exam Complete: Yes Emergency Medical Condition: Yes Medical Record Reviewed: Yes (admission 11/06-11/11 and dxed with hep B. Left AMA with bilirubin still rising. No mention of hepatomegaly during that visit.) Differential Diagnosis Differential diagnosis includes but is not limited to transaminitis, acute liver failure, hepatic encephalopathy Narrative Course This patient was recently diagnosed with hepatitis B. She left the hospital AMA on 11/11 with her bilirubin still rising. Bilirubin on that date was 15.8. The patient reports that she has been getting progressively worse since leaving here on the . She reports poor appetite and nausea and increasing jaundice as well as increasing right upper quadrant abdominal pain. On exam, she has developed significant hepatomegaly. She is also markedly jaundiced. The patient will be treated here with IV fluids and IV morphine and Zofran. CBC , INR, CMP, ammonia level are pending. Admission is anticipated. CBC & BMP Diagram 11/26/17 16:30 Total Protein 5.9 L, Albumin 2.5 L, Calcium Level 8.1 L, Alkaline Phosphatase 153 H, Aspartate Amino Transf (AST/SGOT) 333 H, Alanine Aminotransferase (ALT/ SGPT) 223 H, Total Bilirubin 10.0 H Physician Communication Physician Communication Dr. Rojo Diagnosis Primary Impression: Abdominal pain Qualified Codes: R10.11 - Right upper quadrant pain Additional Impressions: Hepatitis B infection Qualified Codes: B16.9 - Acute hepatitis B without delta-agent and without hepatic coma Elevated LFTs Admitting Information Admitting Physician Requests: Admit Scripts No Active Prescriptions or Reported Meds Condition: Stable Anca Clark MD Nov 26, 2017 16:49
[2017-11-26 17:05] LABS: CHLORIDE 109 MEQ/L (98-107); SODIUM (NA) 142 MEQ/L (136-145)
[2017-11-26 17:07] LABS: INTERNATIONAL NORMALIZED RATIO 1.1 RATIO; PROTHROMBIN TIME - PATIENT 11.4 SEC (9.8-11.6)
[2017-11-26 17:11] LABS: ALBUMIN 2.5 GM/DL (3.4-5.0); BLOOD UREA NITROGEN 5 MG/DL (7-18); CALCIUM 8.1 MG/DL (8.5-10.1); GLUCOSE,RANDOM 64 MG/DL (74-106)
[2017-11-26 17:12] LABS: BICARBONATE 26.8 MEQ/L (21.0-32.0)
[2017-11-26 17:14] LABS: ALT (GPT) 223 U/L (10-53); AST (GOT) 333 U/L (15-37)
[2017-11-26 17:15] LABS: CREATININE 0.53 MG/DL (0.50-1.00); GLOMERULAR FILTRATION RATE 123 ML/MIN (>89)
[2017-11-26 17:16] LABS: TOTAL PROTEIN 5.9 GM/DL (6.4-8.2)
[2017-11-26 17:17] LABS: ALKALINE PHOSPHATASE 153 U/L (45-117)
[2017-11-26 17:35] VITALS: BP 119/83; PULSE 83; RESP 17; O2SAT 98
[2017-11-26 17:38] LABS: LYMPHOCYTES 29 % (9-44); MONOCYTES 10 % (0-8); NEUTROPHIL # MANUAL DIFF 2.8 TH/MM3 (1.8-7.7); POLYS (SEG NEUTROPHILS) 49 % (16-70); TARGET CELLS 1+ (NORMAL)
[2017-11-26 18:31] VITALS: BP 11/72
[2017-11-26 19:00] VITALS: BP 105/74; PULSE 78; RESP 14; TEMP 96.4; O2SAT 98
--- NOTE | 2017-11-26 19:04 | HHI.HP ---
[facility] Zak Mcbride, DO Admission Diagnosis jaundice, hepatitis B, nausea Diagnoses: Chief Complaint: abd pain Travel History International Travel<30 Days: No Contact w/Intl Traveler <30 Da: No Traveled to Known Affected Are: No History of Present Illness Ms. Spicer is a 47-year-old female who was in usual state of health until her subacute right-sided abdominal pain became unbearable and she decided to come to the emergency department. She reports galdino-colored stools, intermittent fevers and chills, nausea and vomiting. She used to be sexually active with her ex-boyfriend who has hepatitis C. No recent tattoos. Patient recently left [facility] when she was hospitalized a few weeks ago for an acute hepatitis B presentation (for wanting to smoke). Hepatitis C workup was negative. Patient had vital hepatic panel performed which did indicate acute hepatitis B infection. Her viral load was noted to be > [id number] then. Her bilirubin was slightly trending upward when she last left. Review of Systems Except as stated in HPI: all other systems reviewed are Neg Past Family Social History Past Medical History Hypothyroidism anxiety Past Surgical History Appendectomy Allergies: Coded Allergies: Sulfa (Sulfonamide Antibiotics) (Unverified Allergy, Severe, SOB, HIVES, FREAK OUT, 11/26/17) cefuroxime (Unverified Allergy, Severe, SHOCK, 11/26/17) doxycycline (Unverified Allergy, Severe, SOB, HIVES FREAK OUT, 11/26/17) minocycline (Unverified Allergy, Severe, SOB, HIVES FREAK OUT, 11/26/17) risperidone (Unverified Allergy, Severe, Anaphylaxis, 11/26/17) tigecycline (Unverified Allergy, Severe, SOB, HIVES FREAK OUT, 11/26/17) Social History Currently smokes, denies IV drug use but charted past UDS + for cocaine, says she does not drink Physical Exam Vital Signs Vital Signs Date Time Temp Pulse Resp B/P (MAP) Pulse Ox O2 Delivery O2 Flow Rate FiO2 11/26/17 18:31 83 17 11/72 (52) 97 11/26/17 17:35 83 17 119/83 (95) 98 Room Air 11/26/17 15:53 98.1 109 20 134/79 (97) 98 Physical Exam VS: afebrile GENERAL: Middle-aged white female, well-nourished, very jaundiced, no acute distress SKIN: Warm and dry. EYES: Pupils equal and round. + scleral icterus. No injection or drainage. ENT: No nasal bleeding or discharge. Mucous membranes pink and moist. CARDIOVASCULAR: Regular rate and rhythm. no murmurs RESPIRATORY: No accessory muscle use. Clear to auscultation. Breath sounds equal bilaterally. GASTROINTESTINAL: Abdomen soft, ND; + TTP over right upper and lower quadrants Extremities: No clubbing, cyanosis, or edema. No obvious deformities. MUSCULOSKELETAL: grossly intact ROM with 5/5 strength in upper and lower extremities proximally; adequate muscle bulk and tone for age and habitus NEUROLOGICAL: Awake and alert. No obvious cranial nerve deficits. No facial droop nor slurred speech noted. PSYCHIATRIC: Appropriate mood and affect; insight and judgment normal. Laboratory Laboratory Tests Test 11/26/17 16:30 White Blood Count 5.8 Red Blood Count 4.38 Hemoglobin 12.7 Hematocrit 37.8 Mean Corpuscular Volume 86.2 Mean Corpuscular Hemoglobin 29.0 Mean Corpuscular Hemoglobin Concent 33.7 Red Cell Distribution Width 21.9 Platelet Count 172 Mean Platelet Volume 8.9 Neutrophils (%) (Auto) Lymphocytes (%) (Auto) Monocytes (%) (Auto) Eosinophils (%) (Auto) Basophils (%) (Auto) Neutrophils # (Auto) Lymphocytes # (Auto) Monocytes # (Auto) Eosinophils # (Auto) Basophils # (Auto) CBC Comment AUTO DIFF Differential Total Cells Counted 100 Neutrophils % (Manual) 49 Lymphocytes % 29 Monocytes % 10 Eosinophils % 12 Neutrophils # (Manual) 2.8 Differential Comment FINAL DIFF MANUAL Platelet Estimate NORMAL Platelet Morphology Comment NORMAL Target Cells 1+ Prothrombin Time 11.4 Prothromb Time International Ratio 1.1 Activated Partial Thromboplast Time 30.3 Blood Urea Nitrogen 5 Creatinine 0.53 Random Glucose 64 Total Protein 5.9 Albumin 2.5 Calcium Level 8.1 Alkaline Phosphatase 153 Aspartate Amino Transf (AST/SGOT) 333 Alanine Aminotransferase (ALT/SGPT) 223 Total Bilirubin 10.0 Sodium Level 142 Potassium Level 3.4 Chloride Level 109 Carbon Dioxide Level 26.8 Anion Gap 6 Estimat Glomerular Filtration Rate 123 Ammonia 47 Result Diagram: 11/26/17 1630 11/26/17 1630 Caprini VTE Risk Assessment Caprini VTE Risk Assessment: Mod/High Risk (score >= 2) Caprini Risk Assessment Model Point Value = 1 Point Value = 2 Point Value = 3 Point Value = 5 Age 41-60 Minor surgery BMI > 25 kg/m2 Swollen legs Varicose veins or History of unexplained or recurrent spontaneous Oral contraceptives or hormone replacement Sepsis (< 1 month) Serious lung disease, including pneumonia (< 1 month) Abnormal pulmonary function Acute myocardial infarction Congestive heart failure (< 1 month) History of inflammatory bowel disease Medical patient at bed rest Age 61-74 Arthroscopic surgery Major open surgery (> 45 min) Laparoscopic surgery (> 45 min) Malignancy Confined to bed (> 72 hours) Immobilizing plaster cast Central venous access Age >= 75 History of VTE Family history of VTE Factor V Leiden Prothrombin [id number] Lupus anticoagulant Anticardiolipin antibodies Elevated serum homocysteine Heparin-induced thrombocytopenia Other congenital or acquired thrombophilia Stroke (< 1 month) Elective arthroplasty Hip, pelvis, or leg fracture Acute spinal cord injury (< 1 month) Prophylaxis Regimen Total Risk Factor Score Risk Level Prophylaxis Regimen 0-1 Low Early ambulation 2 Moderate Order ONE of the following: *Sequential Compression Device (SCD) *Heparin 5000 units SQ BID 3-4 Higher Order ONE of the following medications: *Heparin 5000 units SQ TID *Enoxaparin/Lovenox 40 mg SQ daily (WT < 150 kg, CrCl > 30 mL/min) *Enoxaparin/Lovenox 30 mg SQ daily (WT < 150 kg, CrCl > 10-29 mL/min) *Enoxaparin/Lovenox 30 mg SQ BID (WT < 150 kg, CrCl > 30 mL/min) AND/OR *Sequential Compression Device (SCD) 5 or more Highest Order ONE of the following medications: *Heparin 5000 units SQ TID (Preferred with Epidurals) *Enoxaparin/Lovenox 40 mg SQ daily (WT < 150 kg, CrCl > 30 mL/min) *Enoxaparin/Lovenox 30 mg SQ daily (WT < 150 kg, CrCl > 10-29 mL/min) *Enoxaparin/Lovenox 30 mg SQ BID (WT < 150 kg, CrCl > 30 mL/min) AND *Sequential Compression Device (SCD) Assessment and Plan Assessment and Plan Ms. Spicer is a pleasant 47-year-old female admitted for intractable abd pain 2/2 hep B. Abd pain - likely 2/2 acute hep B. Last viral load > 100k a few weeks ago. - GI consult - Morphine for pain. - MIVFs - avoid tylenol containing pain products - CMP in AM - scheduled questran for pruritis - Anxiety - continue Klonopin 0.5 mg BID Full code. SCDs. Physician Certification 2 Midnight Certification Type: Admission for Inpatient Services Order for Inpatient Services The services are ordered in accordance with Medicare regulations or non- Medicare payer requirements, as applicable. In the case of services not specified as inpatient-only, they are appropriately provided as inpatient services in accordance with the 2-midnight benchmark. Estimated LOS (days): 2 2 days is the estimated time the patient will need to remain in the hospital, assuming treatment plan goals are met and no additional complications. Post-Hospital Plan: Home Guille Carter MD Nov 26, 2017 19:04
[2017-11-26] MEDS ORDERED: PROMETHAZINE INJ 25 MG/ML VIAL IM PRN (19:30)
[2017-11-26] MEDS ORDERED: ONDANSETRON ODT 4 MG TAB PO PRN (19:30)
[2017-11-26] MEDS: CHOLESTYRAMINE 4 GM PACKET PO SCH (20:41)
[2017-11-26] MEDS: clonazePAM 0.5 MG TAB PO SCH (20:42)
[2017-11-26] MEDS ORDERED: clonazePAM 0.5 MG TAB PO SCH (22:00)
[2017-11-27] VITALS: BP 104/64; PULSE 78; RESP 20; TEMP 98.3; O2SAT 96
[2017-11-27 05:47] LABS: CHLORIDE 108 MEQ/L (98-107); SODIUM (NA) 142 MEQ/L (136-145)
[2017-11-27 05:50] LABS: ALBUMIN 2.4 GM/DL (3.4-5.0); BICARBONATE 28.8 MEQ/L (21.0-32.0); CALCIUM 8.6 MG/DL (8.5-10.1)
[2017-11-27 05:51] LABS: BLOOD UREA NITROGEN 7 MG/DL (7-18); GLUCOSE,RANDOM 115 MG/DL (74-106)
[2017-11-27 05:53] LABS: ALT (GPT) 207 U/L (10-53); AST (GOT) 313 U/L (15-37)
[2017-11-27 05:54] LABS: GLOMERULAR FILTRATION RATE 107 ML/MIN (>89)
[2017-11-27 05:55] LABS: TOTAL BILIRUBIN ADULT 9.3 MG/DL (0.2-1.0); TOTAL PROTEIN 5.7 GM/DL (6.4-8.2)
[2017-11-27 05:56] LABS: ALKALINE PHOSPHATASE 161 U/L (45-117)
[2017-11-27 08:00] VITALS: BP 108/77; PULSE 76; RESP 15; TEMP 97.1; O2SAT 98
[2017-11-27] MEDS: CHOLESTYRAMINE 4 GM PACKET PO SCH (08:50)
[2017-11-27] MEDS: clonazePAM 0.5 MG TAB PO SCH (08:50)
[2017-11-27] MEDS ORDERED: PROM25TA10 PO (11:04)
--- NOTE | 2017-11-27 11:05 | HHI.DCPOC ---
Discharge Care Plan Diagnosis: (1) Abdominal pain (2) Elevated LFTs Goals to Promote Your Health * To prevent worsening of your condition and complications * To maintain your health at the optimal level Directions to Meet Your Goals Take your medications as prescribed Follow your dietary instruction Follow activity as directed Keep your appointments as scheduled Take your immunizations and boosters as scheduled If your symptoms worsen call your PCP, if no PCP go to Urgent Care Center or Emergency Room Smoking is Dangerous to Your Health. Avoid second hand smoke Call the 24-hour hour crisis hotline for domestic abuse at Ruthie Barney Nov 27, 2017 11:05
[2017-11-27] MEDS ORDERED: CHOL4POW4 PO (11:06)
[2017-11-27] MEDS ORDERED: OXYC-392 PO (11:07)
--- NOTE | 2017-11-27 11:08 | HHI.PR ---
Subjective Remarks Nursing denies any deterioration since last night. Patient states that she did eat today without any vomiting. Case discussed gastroenterology, stable for discharge so long as bilirubin is improving. Objective Vital Signs Date Time Temp Pulse Resp B/P (MAP) Pulse Ox O2 Delivery O2 Flow Rate FiO2 11/27/17 08:00 97.1 76 15 108/77 (87) 98 11/27/17 00:00 98.3 78 20 104/64 (77) 96 11/26/17 19:00 96.4 78 14 105/74 (84) 98 11/26/17 18:31 83 17 11/72 (52) 97 11/26/17 17:35 83 17 119/83 (95) 98 Room Air 11/26/17 15:53 98.1 109 20 134/79 (97) 98 I/O 11/26/17 11/26/17 11/26/17 11/27/17 11/27/17 11/27/17 07:00 15:00 23:00 07:00 15:00 23:00 Intake Total 1000 ml 480 ml Balance 1000 ml 480 ml Intake Oral 480 ml IV Total 1000 ml # Voids 3 Result Diagram: 11/26/17 1630 11/27/17 0505 Objective Remarks Lying in bed, awake, no acute distress Abdomen soft, nondistended, minimally tender to palpation A/P Assessment and Plan Acute hepatitis B - Clinically improving; case discussed with gastroenterology, bilirubin is trending down, stable for discharge. Patient is tolerating by mouth intake well. Patient says we counseled to follow-up as an outpatient with her primary care provider and gastric neurology. I informed her that there is no specific medication at this time that she is a candidate for for hep B treatment but rather this should eventually stabilize over time and she just needs to eat a low-fat diet with pain control as needed. Patient verbalized understanding. Patient has met maximum benefit from hospitalization and is clinically stable for discharge. Guille Carter MD Nov 27, 2017 11:08
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
== END 2017-11-27 13:31 | disposition home or self-care (01) | DRG 443 ==
LOC: PHED 15:49 → PHEDA 17:55 → PH3A 18:38
PROVIDERS: ADMIT Hospitalist; ATTEND Hospitalist
DX: B16.9 Acute hepatitis B without delta-agent and without hepatic coma (principal); R16.0 Hepatomegaly, not elsewhere classified; E03.9 Hypothyroidism, unspecified; L29.9 Pruritus, unspecified; F17.200 Nicotine dependence, unspecified, uncomplicated; F43.10 Post-traumatic stress disorder, unspecified; F41.0 Panic disorder [episodic paroxysmal anxiety]; Z88.1 Allergy status to other antibiotic agents; Z88.2 Allergy status to sulfonamides
CPT/HCPCS: 80053; 82140; 85007; 85027; 85610; 85730; 96361; 96374; 96375; J2270; J2405; J7030

== ENCOUNTER 2018-04-27 10:18 | Emergency (ER) | payer OTHER ==
[~2018-04-27] VITALS: Ht 175.3 cm; Wt 70.2 kg
[~2018-04-27 10:18] MED LIST changes: -CARBXR200 PO; +CHOL4POW4 PO; -CLIN300C5 PO; -KLON2TAB PO; -NEUR100C PO; +OXYC-392 PO; +PROM25TA10 PO; -SERO25TA PO; -TOPI100 PO; -ZOLO100T PO
[2018-04-27 10:22] VITALS: BP 124/65; PULSE 98; RESP 18; TEMP 97.9; O2SAT 98
[2018-04-27] MEDS ORDERED: CLON.5 PO (10:49)
[2018-04-27] MEDS ORDERED: CLIN150C14 PO (11:13)
[2018-04-27] MEDS ORDERED: IBUP1TAB7 PO (11:13)
--- NOTE | 2018-04-27 11:13 | PD ---
HPI Chief Complaint: Skin Problem Time Seen by Provider: 11:07 Travel History International Travel<30 days: No Contact w/Intl Traveler<30days: No Traveled to known affect area: No History of Present Illness HPI 47-year-old female presents to emergency department complaining of an abscess to her left forearm for the past 2-3 days. Denies fever, vomiting. Denies paresthesias, loss of sensation, decreased range of motion, decreased strength to the affected extremity. Denies history of abscesses. Denies IV drug use. Has not taken any medications or try any treatments to alleviate her symptoms. Symptoms are moderate in severity. No known aggravating or relieving factors. Allergies as listed on the chart. No primary care provider. History of hepatitis C. Has no other medical complaints. No other modifying factors or associated signs and symptoms. PFSH Past Medical History Hx Anticoagulant Therapy: No Asthma: No Autoimmune Disease: No Bipolar Disorder: Yes Anxiety: Yes (PANIC ATTACKS) Depression: Yes (POST TRAUMATIC STRESS DISORDER) Cancer: No Cardiovascular Problems: No Chemotherapy: No Cirrhosis: Yes Cerebrovascular Accident: No Diabetes: No Diminished Hearing: No Endocrine: Yes Genitourinary: No Hepatitis: Yes (B AND C) Immune Disorder: No Neurologic: No Psychiatric: Yes Reproductive: No Respiratory: No Immunizations Current: Yes Thyroid Disease: Yes ?: Not : 3 Miscarriage: 2 : 1 Past Surgical History Abdominal Surgery: Yes (appendectomy 1998) Appendectomy: Yes (1998) Cardiac Surgery: No Ear Surgery: No Endocrine Surgery: No Eye Surgery: No Genitourinary Surgery: No Gynecologic Surgery: No Hysterectomy: No Oral Surgery: No Thoracic Surgery: No Other Surgery: Yes (RHINOPLASTY- 1998, BLEPHAROPLASTY 1998) Social History Alcohol Use: No Tobacco Use: Yes (1 PPD) Substance Use: No Allergies-Medications (Allergen,Severity, Reaction): Coded Allergies: Sulfa (Sulfonamide Antibiotics) (Unverified Allergy, Severe, SOB, HIVES, FREAK OUT, 11/26/17) cefuroxime (Unverified Allergy, Severe, SHOCK, 11/26/17) doxycycline (Unverified Allergy, Severe, SOB, HIVES FREAK OUT, 11/26/17) minocycline (Unverified Allergy, Severe, SOB, HIVES FREAK OUT, 11/26/17) risperidone (Unverified Allergy, Severe, Anaphylaxis, 11/26/17) tigecycline (Unverified Allergy, Severe, SOB, HIVES FREAK OUT, 11/26/17) Reported Meds & Prescriptions Reported Meds & Active Scripts Active Ibuprofen 800 Mg Tab 800 Mg PO Q6HR PRN Clindamycin (Clindamycin HCl) 150 Mg Cap 450 Mg PO Q6H 10 Days Reported Klonopin (Clonazepam) 0.5 Mg Tab 0.5 Mg PO TID Review of Systems Except as stated in HPI: all other systems reviewed are Neg Physical Exam Narrative GENERAL: Well-nourished, well-developed female patient, in no acute distress; afebrile, nontoxic-appearing SKIN: There is an indurated area to the proximal left forearm which measures about 3 cm in diameter. It is fluctuant but there is no pointing or drainage. There is a zone of inflammation around it but no lymphangitis. HEAD: Atraumatic. Normocephalic. EYES: Pupils equal and round. No scleral icterus. No injection or drainage. ENT: Mucosa pink and moist. Airway patent. NECK: Trachea midline. CARDIOVASCULAR: Regular rate. RESPIRATORY: No accessory muscle use. GASTROINTESTINAL: Flat. MUSCULOSKELETAL: No obvious deformities. No clubbing. No cyanosis. No edema. NEUROLOGICAL: Awake and alert. Oriented 3. No obvious cranial nerve deficits. Motor grossly within normal limits. Normal speech. PSYCHIATRIC: Appropriate mood and affect; insight and judgment normal. Data Data Last Documented VS Vital Signs Date Time Temp Pulse Resp B/P (MAP) Pulse Ox O2 Delivery O2 Flow Rate FiO2 04/27/18 11:28 04/27/18 10:22 97.9 98 18 98 Orders Orders Lidocaine Pf 1% Inj (Xylocaine-Mpf 1% In (04/27/18 11:15) Wound Culture And Gram Stain (04/27/18 11:07) Clindamycin (Cleocin) (04/27/18 11:15) Ibuprofen (Motrin) (04/27/18 11:15) Ed Discharge Order (04/27/18 11:27) [facility] Medical Decision Making Medical Screen Exam Complete: Yes Emergency Medical Condition: Yes Medical Record Reviewed: Yes Differential Diagnosis Abscess, cellulitis, folliculitis Narrative Course 47-year-old female with an abscess of the left forearm. Patient is afebrile and nontoxic-appearing. Denies fever, vomiting. Denies IV drug use, although she has signs of track davis scars and fresh appearing injection sites on her bilateral arms. Has history of hepatitis C. See my procedure note for abscess incision and drainage. Wound culture ordered and pending. Ibuprofen, clindamycin administered in the ER. Instructed patient to return to the emergency department in 48 hours for packing removal and abscess recheck. instructed patient to follow up with primary care provider. Patient verbalizes understanding and agreement with treatment plan. Patient is medically cleared and stable for discharge. Discussed reasons to return to the emergency department. Patient agrees with treatment plan. The patients vital signs are stable and the patient is stable for outpatient follow-up and treatment. Patient discharged home, stable and in no acute distress. Procedures Procedure Narrative INCISION AND DRAINAGE OF ABSCESS: The area was prepped and was sterilely draped. A subcutaneous wheal of 1 % Xylocaine with a total number 2 mL was used to anesthetize the area properly. A number 11 scalpel was used to make a 1 -cm incision across the area of the abscess. The abscess was drained, complex loculations were broken down, and irrigated with normal saline. Cultures were obtained. Quarter inch iodoform packing was placed in the wound. Sterile dressing applied. Patient advised to have packing removed in two days. Diagnosis Primary Impression: Abscess of left arm Referrals: [facility] Primary Care Physician Patient Instructions: Abscess (ED), Abscess Follow-up (ED), Abscess Incision and Drainage (DC), General Instructions Additional Instructions: Complete full course of antibiotics; clindamycin is approximately $21 at [facility] pharmacy Warm compresses to the affected area Keep area clean and dry Ibuprofen or Tylenol as directed and as needed for pain and inflammation Return to the emergency department in 48 hours for packing removal and abscess recheck Follow-up with primary care provider Return to emergency department immediately with worsening of symptoms Med/Other Pt SpecificInfo: Prescription(s) given Scripts Ibuprofen (Ibuprofen) 800 Mg Tab 800 MG PO Q6HR Y for PAIN, #20 TAB 0 Refills Prov: Antoinette Gorman 04/27/18 Clindamycin (Clindamycin) 150 Mg Cap 450 MG PO Q6H for Infection for 10 Days, #120 CAP 0 Refills Prov: Antoinette Gorman 6/9/18 Disposition: 01 DISCHARGE HOME Condition: Stable Rassi,Antoinette K HAND LASTER Apr 27, 2018 11:13
[2018-04-27] MEDS ORDERED: LIDOCAINE HCL 1% PF 30 ML VIAL INFIL ONE (11:15)
[2018-04-27] MEDS ORDERED: IBUPROFEN 800 MG TAB PO ONE (11:15)
[2018-04-27] MEDS ORDERED: CLINDAMYCIN 150 MG CAP PO ONE (11:15)
== END 2018-04-27 11:35 | disposition home or self-care (01) ==
LOC: PHED 10:18 → PHEFT 11:35
DX: L02.414 Cutaneous abscess of left upper limb (principal); B95.61 Methicillin susceptible Staphylococcus aureus infection as the cause of diseases classified elsewhere; F31.9 Bipolar disorder, unspecified; F43.10 Post-traumatic stress disorder, unspecified; K74.60 Unspecified cirrhosis of liver; E07.9 Disorder of thyroid, unspecified; F17.200 Nicotine dependence, unspecified, uncomplicated; Z86.19 Personal history of other infectious and parasitic diseases
CPT/HCPCS: 10060; 86403; 87070; 87185; 87186; 87205

== ENCOUNTER 2018-04-29 14:53 | Emergency (ER) | payer OTHER ==
[~2018-04-29 14:53] MED LIST changes: -CHOL4POW4 PO; +CLIN150C14 PO; +CLON.5 PO; +IBUP1TAB7 PO; -OXYC-392 PO; -PROM25TA10 PO
[2018-04-29 15:01] VITALS: BP 111/69; PULSE 91; RESP 18; TEMP 98.3; O2SAT 97
--- NOTE | 2018-04-29 15:23 | PD ---
HPI Chief Complaint: Wound/Suture/Staple Re-Check Time Seen by Provider: 15:13 Travel History International Travel<30 days: No Contact w/Intl Traveler<30days: No Traveled to known affect area: No History of Present Illness HPI This is a 47-year-old female here for packing removal to an abscess in the left forearm. Incision and drainage was performed 2 days ago. She reports compliance with antibiotics. Symptom severity is mild. No aggravating or alleviating factors. She denies fevers. PFSH Past Medical History Hx Anticoagulant Therapy: No Asthma: No Autoimmune Disease: No Bipolar Disorder: Yes Anxiety: Yes (PANIC ATTACKS) Depression: Yes (POST TRAUMATIC STRESS DISORDER) Cancer: No Cardiovascular Problems: No Chemotherapy: No Cirrhosis: Yes Cerebrovascular Accident: No Diabetes: No Diminished Hearing: No Endocrine: Yes Genitourinary: No Hepatitis: Yes (B AND C) Immune Disorder: No Neurologic: No Psychiatric: Yes Reproductive: No Respiratory: No Immunizations Current: Yes Thyroid Disease: Yes Tetanus Vaccination: < 5 Years ?: Not LMP: 04/07/18 : 3 Miscarriage: 2 : 1 Past Surgical History Abdominal Surgery: Yes (appendectomy 1998) Appendectomy: Yes (1998) Cardiac Surgery: No Ear Surgery: No Endocrine Surgery: No Eye Surgery: No Genitourinary Surgery: No Gynecologic Surgery: No Hysterectomy: No Oral Surgery: No Thoracic Surgery: No Other Surgery: Yes (RHINOPLASTY- 1998, BLEPHAROPLASTY 1998) Social History Alcohol Use: No Tobacco Use: Yes (1 PPD) Substance Use: No Allergies-Medications (Allergen,Severity, Reaction): Coded Allergies: Sulfa (Sulfonamide Antibiotics) (Verified Allergy, Severe, SOB, HIVES, FREAK OUT, 04/29/18) cefuroxime (Verified Allergy, Severe, SHOCK, 04/29/18) doxycycline (Verified Allergy, Severe, SOB, HIVES FREAK OUT, 04/29/18) minocycline (Verified Allergy, Severe, SOB, HIVES FREAK OUT, 04/29/18) risperidone (Verified Allergy, Severe, Anaphylaxis, 04/29/18) tigecycline (Verified Allergy, Severe, SOB, HIVES FREAK OUT, 04/29/18) Reported Meds & Prescriptions Reported Meds & Active Scripts Active Ibuprofen 800 Mg Tab 800 Mg PO Q6HR PRN Clindamycin (Clindamycin HCl) 150 Mg Cap 450 Mg PO Q6H 10 Days Reported Klonopin (Clonazepam) 0.5 Mg Tab 0.5 Mg PO TID Review of Systems Except as stated in HPI: all other systems reviewed are Neg General / Constitutional: No: Fever Physical Exam Narrative GENERAL: Alert and well-appearing 47-year-old female. Nontoxic-appearing. SKIN: Focused skin assessment reveals a healing abscess to the left forearm. Minimal drainage on the bandage. There is no packing in place. HEAD: Normocephalic. EYES: No injection or drainage. NECK: Supple CARDIOVASCULAR: Regular rate and rhythm RESPIRATORY: Breath sounds equal bilaterally. No accessory muscle use. GASTROINTESTINAL: nondistended. MUSCULOSKELETAL: No cyanosis, or edema. Data Data Last Documented VS Vital Signs Date Time Temp Pulse Resp B/P (MAP) Pulse Ox O2 Delivery O2 Flow Rate FiO2 04/29/18 15:01 98.3 91 18 111/69 (83) 97 MDM Medical Decision Making Medical Screen Exam Complete: Yes Emergency Medical Condition: Yes Differential Diagnosis Abscess, cellulitis, lymphangitis Narrative Course 47-year-old female here with abscess to the left forearm here for recheck. The area appears to be healing. There was no packing in place on inspection. It was likely dislodged with dressing change at home. She was instructed to continue her antibiotics. Follow-up with her primary doctor. Diagnosis Primary Impression: Abscess Referrals: Primary Care Physician Additional Instructions: Continue antibiotics as directed. Follow-up with her primary doctor. Disposition: 01 DISCHARGE HOME Condition: Stable Maricruz Scott Apr 29, 2018 15:23
== END 2018-04-29 16:25 | disposition home or self-care (01) ==
LOC: PHEFT 14:53
DX: Z48.00 Encounter for change or removal of nonsurgical wound dressing (principal); L02.414 Cutaneous abscess of left upper limb; F31.9 Bipolar disorder, unspecified; F43.10 Post-traumatic stress disorder, unspecified; K74.60 Unspecified cirrhosis of liver; E07.9 Disorder of thyroid, unspecified; F17.200 Nicotine dependence, unspecified, uncomplicated; Z86.19 Personal history of other infectious and parasitic diseases; Z79.899 Other long term (current) drug therapy
CPT/HCPCS: 99281

== ENCOUNTER 2018-05-11 09:17 | Emergency (ER) | payer OTHER ==
[~2018-05-11] VITALS: Ht 175.3 cm; Wt 67.0 kg
[2018-05-11 09:19] VITALS: BP 128/70; PULSE 89; RESP 20; TEMP 98.2; O2SAT 97
[2018-05-11] MEDS ORDERED: MORPHINE SULFATE 4 MG/ML INJ IV PUSH ONE (09:45)
[2018-05-11] MEDS ORDERED: ONDANSETRON ODT 4 MG TAB PO ONE (09:45)
--- NOTE | 2018-05-11 09:49 | PD ---
HPI Chief Complaint: Abdominal Pain Time Seen by Provider: 09:33 Travel History International Travel<30 days: No Contact w/Intl Traveler<30days: No Traveled to known affect area: No History of Present Illness HPI The patient was seen and examined in the presence of the nurse. This patient complains of right upper quadrant pain. It is a chronic problem that nags her for over 6 months time. She was seen here 6 months ago for it. She has history of hepatitis B and hepatitis C. She is not an alcohol drinker. She has no appendix. Symptom severity is moderate. No alleviating factors. Today the pain is flared more so than usual. She does not treat her hepatitis or go to a doctor. No IV drug use. PFSH Past Medical History Hx Anticoagulant Therapy: No Asthma: No Autoimmune Disease: No Bipolar Disorder: Yes Anxiety: Yes (PANIC ATTACKS) Depression: Yes (POST TRAUMATIC STRESS DISORDER) Cancer: No Cardiovascular Problems: No Chemotherapy: No Cirrhosis: Yes Cerebrovascular Accident: No Diabetes: No Diminished Hearing: No Endocrine: Yes Genitourinary: No Hepatitis: Yes (B AND C) Immune Disorder: No Implanted Vascular Access Dvce: No Neurologic: No Psychiatric: Yes Reproductive: No Respiratory: No Immunizations Current: Yes Thyroid Disease: Yes ?: Not LMP: Last week : 3 Miscarriage: 2 : 1 Past Surgical History Abdominal Surgery: Yes (appendectomy 1998) Appendectomy: Yes (1998) Cardiac Surgery: No Ear Surgery: No Endocrine Surgery: No Eye Surgery: No Genitourinary Surgery: No Gynecologic Surgery: No Hysterectomy: No Neurologic Surgery: No Oral Surgery: No Thoracic Surgery: No Other Surgery: Yes (RHINOPLASTY- 1998, BLEPHAROPLASTY 1998) Social History Alcohol Use: No Tobacco Use: Yes (1 PPD) Substance Use: No Allergies-Medications (Allergen,Severity, Reaction): Coded Allergies: Sulfa (Sulfonamide Antibiotics) (Verified Allergy, Severe, SOB, HIVES, FREAK OUT, 05/11/18) cefuroxime (Verified Allergy, Severe, SHOCK, 05/11/18) doxycycline (Verified Allergy, Severe, SOB, HIVES FREAK OUT, 05/11/18) minocycline (Verified Allergy, Severe, SOB, HIVES FREAK OUT, 05/11/18) risperidone (Verified Allergy, Severe, Anaphylaxis, 05/11/18) tigecycline (Verified Allergy, Severe, SOB, HIVES FREAK OUT, 05/11/18) Reported Meds & Prescriptions Reported Meds & Active Scripts Active Phenergan (Promethazine HCl) 25 Mg Tablet 25 Mg PO Q6H PRN Reported Klonopin (Clonazepam) 0.5 Mg Tab 0.5 Mg PO TID Review of Systems General / Constitutional: No: Fever Eyes: No: Visual changes HENT: No: Headaches Cardiovascular: No: Chest Pain or Discomfort Respiratory: No: Shortness of Breath Gastrointestinal: Positive: Nausea, Diarrhea, Abdominal Pain Genitourinary: No: Dysuria Musculoskeletal: No: Pain Skin: No Rash Neurologic: No: Weakness Psychiatric: No: Depression Endocrine: No: Polydipsia Hematologic/Lymphatic: No: Easy Bruising Physical Exam Narrative GENERAL: Well-nourished, well-developed patient in no apparent distress. SKIN: Focused skin assessment reveals no rash and nodules. Skin is Warm and dry. Healing left arm abscess that was incised and drained recently HEAD: Atraumatic. Normocephalic. EYES: Pupils equal and round. No scleral icterus. No injection or drainage. ENT: No nasal bleeding or discharge. Mucous membranes pink and moist. NECK: Trachea midline. No JVD. CARDIOVASCULAR: Regular rate and rhythm. No murmur appreciated. RESPIRATORY: No accessory muscle use. Clear to auscultation. Breath sounds equal bilaterally. GASTROINTESTINAL: Abdomen soft, mild right upper quadrant tenderness without rebound or guarding, nondistended. Hepatic and splenic margins not palpable. MUSCULOSKELETAL: No obvious deformities. No clubbing. No cyanosis. No edema. NEUROLOGICAL: Awake and alert. No obvious cranial nerve deficits. Motor grossly within normal limits. Normal speech. PSYCHIATRIC: Appropriate mood and affect; insight and judgment normal. Data Data Last Documented VS Vital Signs Date Time Temp Pulse Resp B/P (MAP) Pulse Ox O2 Delivery O2 Flow Rate FiO2 05/11/18 11:08 72 18 111/75 (87) 97 Room Air 05/11/18 09:19 98.2 Orders Orders Urinalysis - C+S If Indicated (05/11/18 09:19) Ed Urine Pregnancytest Poc (05/11/18 09:31) Iv Access Insert/Monitor (05/11/18 09:43) Complete Blood Count With Diff (05/11/18 09:43) Comprehensive Metabolic Panel (05/11/18 09:43) Lipase (05/11/18 09:43) Morphine Inj (Morphine Inj) (05/11/18 09:45) Ondansetron Odt (Zofran Odt) (05/11/18 09:45) Urine Culture (05/11/18 10:00) Labs Laboratory Tests Test 05/11/18 09:45 05/11/18 10:00 White Blood Count 6.6 TH/MM3 Red Blood Count 5.09 MIL/MM3 Hemoglobin 14.8 GM/DL Hematocrit 44.1 % Mean Corpuscular Volume 86.7 FL Mean Corpuscular Hemoglobin 29.2 PG Mean Corpuscular Hemoglobin Concent 33.6 % Red Cell Distribution Width 13.9 % Platelet Count 295 TH/MM3 Mean Platelet Volume 7.6 FL Neutrophils (%) (Auto) 70.3 % Lymphocytes (%) (Auto) 22.9 % Monocytes (%) (Auto) 4.0 % Eosinophils (%) (Auto) 2.0 % Basophils (%) (Auto) 0.8 % Neutrophils # (Auto) 4.6 TH/MM3 Lymphocytes # (Auto) 1.5 TH/MM3 Monocytes # (Auto) 0.3 TH/MM3 Eosinophils # (Auto) 0.1 TH/MM3 Basophils # (Auto) 0.1 TH/MM3 CBC Comment DIFF FINAL Differential Comment Blood Urea Nitrogen 4 MG/DL Creatinine 0.67 MG/DL Random Glucose 101 MG/DL Total Protein 7.4 GM/DL Albumin 3.4 GM/DL Calcium Level 9.0 MG/DL Alkaline Phosphatase 63 U/L Aspartate Amino Transf (AST/SGOT) 14 U/L Alanine Aminotransferase (ALT/SGPT) 19 U/L Total Bilirubin 0.4 MG/DL Sodium Level 140 MEQ/L Potassium Level 3.5 MEQ/L Chloride Level 105 MEQ/L Carbon Dioxide Level 25.3 MEQ/L Anion Gap 10 MEQ/L Estimat Glomerular Filtration Rate 94 ML/MIN Lipase 119 U/L Urine Collection Type CLEAN CATCH Urine Color YELLOW Urine Turbidity SL CLOUDY Urine pH 7.5 Urine Specific [place] 1.010 Urine Protein 30 mg/dL Urine Glucose (UA) NEG mg/dL Urine Ketones NEG mg/dL Urine Occult Blood LARGE Urine Nitrite POS Urine Bilirubin NEG Urine Urobilinogen 1.0 MG/DL Urine Leukocyte Esterase TRACE Urine RBC 4-9 /hpf Urine WBC 6-8 /hpf Urine WBC Clumps FEW Urine Squamous Epithelial Cells 0-5 /hpf Urine Amorphous Sediment FEW Urine Bacteria MOD /hpf Microscopic Urinalysis Comment CULTURE INDICATED Urine Collection Time 10 MDM Medical Decision Making Medical Screen Exam Complete: Yes Emergency Medical Condition: Yes Medical Record Reviewed: Yes Differential Diagnosis Hepatitis, cholecystitis, ileus Narrative Course I have reviewed the patient's electronic medical record. Reviewed her visit from 6 months ago. Reviewed her gallbladder ultrasound and CT imaging of abdomen and pelvis IV placed and labs sent I gave her morphine and Zofran for symptom relief Urine is negative Urinalysis shows a few inflammatory cells. It will be cultured. I discussed this with her. She has absolutely no urinary symptoms. Will base any treatment after culture review. CBC and metabolic studies and LFTs and lipase are all normal I wrote her some Phenergan at her request She knew this my name and has had it before The patient was advised to follow up with their physician and return if they worsen. Diagnosis Primary Impression: Abdominal pain Qualified Codes: R10.11 - Right upper quadrant pain Additional Instructions: The patient was advised to follow up with their physician and return if they worsen. Med/Other Pt SpecificInfo: Prescription(s) given Scripts Promethazine (Phenergan) 25 Mg Tablet 25 MG PO Q6H Y for NAUSEA OR VOMITING, #10 TAB 0 Refills Prov: Randall Lozano MD 05/11/18 Disposition: 01 DISCHARGE HOME Condition: Stable Randall Lozano MD May 11, 2018 09:48
[2018-05-11 10:01] LABS: AUTOMATED NEUTROPHIL # 4.6 TH/MM3 (1.8-7.7); BASOPHIL # 0.1 TH/MM3 (0-0.2); BASOPHIL % 0.8 % (0.0-2.0); EOSINOPHIL # 0.1 TH/MM3 (0-0.4); HEMATOCRIT 44.1 % (35.0-46.0); HEMOGLOBIN 14.8 GM/DL (11.6-15.3); LYMPH % 22.9 % (9.0-44.0); LYMPHOCYTE # 1.5 TH/MM3 (1.0-4.8); MEAN CELL VOLUME 86.7 FL (80.0-100.0); MEAN CORPUSCULAR HEMOGLOBIN 29.2 PG (27.0-34.0); MEAN CORPUSCULAR HGB CONC 33.6 % (32.0-36.0); MEAN PLATELET VOLUME 7.6 FL (7.0-11.0); MONOCYTE # 0.3 TH/MM3 (0-0.9); NEUT % 70.3 % (16.0-70.0); PLATELET COUNT 295 TH/MM3 (150-450); RED BLOOD COUNT 5.09 MIL/MM3 (4.00-5.30); RED CELL DISTRIBUTION WIDTH 13.9 % (11.6-17.2); WHITE BLOOD COUNT 6.6 TH/MM3 (4.0-11.0)
[2018-05-11 10:07] LABS: CHLORIDE 105 MEQ/L (98-107); SODIUM (NA) 140 MEQ/L (136-145)
[2018-05-11 10:10] LABS: ALBUMIN 3.4 GM/DL (3.4-5.0); BICARBONATE 25.3 MEQ/L (21.0-32.0)
[2018-05-11 10:11] LABS: BLOOD UREA NITROGEN 4 MG/DL (7-18); GLUCOSE,RANDOM 101 MG/DL (74-106)
[2018-05-11 10:12] LABS: BILIRUBIN, URINE NEG (NEG); BLOOD, URINE LARGE (NEG); GLUCOSE,URINE NEG (NEG); KETONE, URINE NEG (NEG); NITRITE,URINE POS (NEG); PH, URINE 7.5 (5.0-8.5); URINE COLOR YELLOW (YELLW/STRAW); URINE LEUKOCYTE ESTERASE TRACE (NEG)
[2018-05-11 10:13] LABS: ALT (GPT) 19 U/L (10-53); CREATININE 0.67 MG/DL (0.50-1.00); GLOMERULAR FILTRATION RATE 94 ML/MIN (>89)
[2018-05-11 10:15] LABS: TOTAL BILIRUBIN ADULT 0.4 MG/DL (0.2-1.0); TOTAL PROTEIN 7.4 GM/DL (6.4-8.2)
[2018-05-11 10:16] LABS: ALKALINE PHOSPHATASE 63 U/L (45-117)
[2018-05-11 10:20] LABS: AST (GOT) 14 U/L (15-37)
[2018-05-11 10:25] LABS: AMORPHOUS SEDIMENT, URINE FEW; BACTERIA, URINE MOD /hpf; SQUAMOUS EPITHELIAL CELL URINE 0-5 /hpf (0-5); WHITE BLOOD CELL CLUMPS FEW
[2018-05-11 11:08] VITALS: BP 111/75; PULSE 72; RESP 18; O2SAT 97
[2018-05-11] MEDS ORDERED: PROM25TA10 PO (11:28)
== END 2018-05-11 11:41 | disposition home or self-care (01) ==
LOC: PHED 09:17
DX: R10.11 Right upper quadrant pain (principal); B19.20 Unspecified viral hepatitis C without hepatic coma; B19.10 Unspecified viral hepatitis B without hepatic coma; K74.60 Unspecified cirrhosis of liver; Z72.0 Tobacco use; Z88.2 Allergy status to sulfonamides
CPT/HCPCS: 80053; 81001; 83690; 84703; 85025; 87086; 96374; 99284; J2270